=== PATIENT | female | born 1950 | race Caucasian/White ===

== ENCOUNTER 2017-10-10 17:38 | Inpatient (IN) | payer OTHER ==
[~2017-10-10] VITALS: Ht 154.9 cm; Wt 49.0 kg
[2017-10-10 19:41] LABS: CALCIUM 8.3 mg/dL (8.5-10.1); CARBON DIOXIDE 23.8 mmol/L (21-32); CHLORIDE SERUM 103 mmol/L (98-107); CREATININE SERUM 0.7 mg/dL (0.6-1.0); GFR1 > 60 mL/min; GLUCOSE SERUM 130 mg/dL (74-106); POTASSIUM SERUM 4.4 mmol/L (3.5-5.1); SODIUM SERUM 136 mmol/L (136-145)
[2017-10-10 19:43] LABS: ALKALINE PHOSPHATASE 185 U/L (46-116); ALT/SGPT 18 U/L (14-59); AST/SGOT 31 U/L (15-37); BILIRUBIN TOTAL 0.64 mg/dL (0.20-1.00); CHOLESTEROL 142 mg/dL (<200); TOTAL PROTEIN, SERUM 7.1 g/dL (6.4-8.2)
[2017-10-10 19:51] LABS: ALBUMIN 3.2 g/dL (3.4-5.0)
[2017-10-10 21:35] LABS: PLATELET COUNT 378 x10^3mcL (130-400)
[2017-10-10 21:49] LABS: MAGNESIUM 2.2 mg/dL (1.8-2.4); PHOSPHOROUS 3.6 mg/dL (2.5-4.9)
[2017-10-10 21:51] LABS: CHOLESTEROL/HDL RATIO 4.1
[2017-10-10 21:56] LABS: FREE T4 1.09 ng/dL (0.76-1.46); FREE THYROXINE INDEX 2.3 ug/dL (1.4-4.5); T4(THYROXINE) 6.6 ug/dL (4.7-13.3)
[2017-10-10 21:57] VITALS: BP 96/54
[2017-10-10 22:11] LABS: RED CELL DISTRIBUTION WIDTH 23.4 % (11.5-14.5)
[2017-10-10 22:38] LABS: T3 TOTAL 0.73 ng/mL
[2017-10-10 23:58] LABS: rbc morphology (normal/abnorm) ABNORMAL (NORMAL)
[2017-10-11] VITALS (8 sets, daily range): BP systolic 91–109; BP diastolic 45–55
[2017-10-11 00:04] LABS: BAND NEUTROPHIL 10 % (0-10); PLATELET MORPHOLOGY LARGE PLATELET SEEN; SEGMENTED NEUTROPHILS 70 % (37-75)
[2017-10-11 01:31] LABS: IRON 7 ug/dL (50-170); TOTAL IRON BINDING CAPACITY 222 ug/dL (250-450)
[2017-10-11 02:24] LABS: RED BLOOD CELLS 2.77 M/mm3 (4.10-5.10)
[2017-10-11 02:51] LABS: UA SPECIFIC GRAVITY 1.015 (1.005-1.035); microscopic required? YES; urine erythrocyte NEGATIVE (NEGATIVE)
[2017-10-11 03:04] LABS: AMPHETAMINE QUAL UR NONE DETECTED (NEG <=1000)
[2017-10-11 10:45] LABS: PLATELET COUNT 336 x10^3mcL (130-400)
[2017-10-11 11:01] LABS: CALCIUM 8.4 mg/dL (8.5-10.1); CARBON DIOXIDE 22.8 mmol/L (21-32); CHLORIDE SERUM 103 mmol/L (98-107); CREATININE SERUM 0.6 mg/dL (0.6-1.0); GFR1 > 60 mL/min; GLUCOSE SERUM 108 mg/dL (74-106); POTASSIUM SERUM 3.7 mmol/L (3.5-5.1); SODIUM SERUM 137 mmol/L (136-145)
[2017-10-11 11:04] LABS: BASOPHIL % 0 % (0-2); RED CELL DISTRIBUTION WIDTH 32.8 % (11.5-14.5)
[2017-10-11 11:07] LABS: ovalocyte/elliptocyte 1+; rbc morphology (normal/abnorm) ABNORMAL (NORMAL)
[2017-10-11 19:31] LABS: PLATELET COUNT 319 x10^3mcL (130-400)
[2017-10-11 19:53] LABS: BASOPHIL % 0 % (0-2); RED CELL DISTRIBUTION WIDTH 31.9 % (11.5-14.5)
[2017-10-11 20:02] LABS: rbc morphology (normal/abnorm) ABNORMAL (NORMAL)
[2017-10-11 20:03] LABS: tear drop cell (dacryocyte) 1+
[2017-10-12 05:18] VITALS: BP 93/50
[2017-10-12 07:31] LABS: PLATELET COUNT 303 x10^3mcL (130-400)
[2017-10-12 07:32] LABS: RED CELL DISTRIBUTION WIDTH 31.9 % (11.5-14.5)
[2017-10-12 07:33] LABS: CALCIUM 8.3 mg/dL (8.5-10.1); CARBON DIOXIDE 23.2 mmol/L (21-32); CHLORIDE SERUM 107 mmol/L (98-107); CREATININE SERUM 0.5 mg/dL (0.6-1.0); GFR1 > 60 mL/min; GLUCOSE SERUM 73 mg/dL (74-106); MAGNESIUM 2.1 mg/dL (1.8-2.4); POTASSIUM SERUM 3.3 mmol/L (3.5-5.1); SODIUM SERUM 141 mmol/L (136-145)
[2017-10-12 09:16] VITALS: BP 101/58
[2017-10-12 09:20] LABS: BAND NEUTROPHIL 0 % (0-10); BASOPHIL 0 % (0-2); MONOCYTE 5 % (0-7); SEGMENTED NEUTROPHILS 72 % (37-75)
[2017-10-12 09:23] LABS: rbc morphology (normal/abnorm) ABNORMAL (NORMAL)
[2017-10-12 09:24] LABS: target cell (codocyte) 1+; tear drop cell (dacryocyte) 1+
[2017-10-12 11:33] VITALS: BP 96/51
[2017-10-12 17:09] VITALS: BP 98/47
[2017-10-12 19:39] VITALS: BP 129/68
[2017-10-13 04:47] VITALS: BP 114/60
[2017-10-13 08:52] LABS: BASOPHIL % 0.1 % (0-2); PLATELET COUNT 267 x10^3mcL (130-400)
[2017-10-13 08:54] VITALS: BP 106/55
[2017-10-13 09:43] LABS: RED CELL DISTRIBUTION WIDTH 32.8 % (11.5-14.5)
[2017-10-13 09:46] LABS: rbc morphology (normal/abnorm) ABNORMAL (NORMAL); target cell (codocyte) 1+; tear drop cell (dacryocyte) 1+
[2017-10-13 09:55] LABS: CALCIUM 8.2 mg/dL (8.5-10.1); CARBON DIOXIDE 22.8 mmol/L (21-32); CHLORIDE SERUM 107 mmol/L (98-107); CREATININE SERUM 0.6 mg/dL (0.6-1.0); GFR1 > 60 mL/min; GLUCOSE SERUM 118 mg/dL (74-106); MAGNESIUM 2.1 mg/dL (1.8-2.4); PHOSPHOROUS 3.3 mg/dL (2.5-4.9); POTASSIUM SERUM 3.5 mmol/L (3.5-5.1); SODIUM SERUM 141 mmol/L (136-145)
[2017-10-13 13:40] VITALS: BP 109/56
[2017-10-13 17:28] VITALS: BP 105/58
[2017-10-13] MEDS ORDERED: LIPI10 PO (18:10)
[2017-10-13] MEDS ORDERED: TOPROL XL25 MG PO (18:13)
[2017-10-13] MEDS ORDERED: LEVAQUIN750 MG PO (18:25)
[2017-10-13] MEDS ORDERED: GOOD SENSE OMEP20 MG PO (18:46)
[2017-10-13 19:06] VITALS: BP 105/58
[2017-10-13 19:51] VITALS: Ht 154.9 cm; Wt 49.0 kg
[2017-10-13 20:20] VITALS: BP 110/60
== END 2017-10-13 21:21 | disposition home or self-care (01) | DRG 377 ==
LOC: ED 17:38 → DU 20:25
PROVIDERS: Emergency Medicine; Family Medicine; Internal Medicine Gastroenterology
PROC: 30233N1 Transfusion of Nonautologous Red Blood Cells into Peripheral Vein, Percutaneous Approach (ICD-10-PCS; 2017-10-11)
PROC: 0DB68ZX Excision of Stomach, Via Natural or Artificial Opening Endoscopic, Diagnostic (ICD-10-PCS; principal; 2017-10-12 09:30)
PROC: 0W3P8ZZ Control Bleeding in Gastrointestinal Tract, Via Natural or Artificial Opening Endoscopic (ICD-10-PCS; 2017-10-12 09:30)
DX: K92.2 Gastrointestinal hemorrhage, unspecified (principal); N17.0 Acute kidney failure with tubular necrosis; I50.43 Acute on chronic combined systolic (congestive) and diastolic (congestive) heart failure; N39.0 Urinary tract infection, site not specified; D61.818 Other pancytopenia; E87.1 Hypo-osmolality and hyponatremia; I42.9 Cardiomyopathy, unspecified; I25.10 Atherosclerotic heart disease of native coronary artery without angina pectoris; M81.0 Age-related osteoporosis without current pathological fracture; E11.9 Type 2 diabetes mellitus without complications; D50.9 Iron deficiency anemia, unspecified; R74.0 Nonspecific elevation of levels of transaminase and lactic acid dehydrogenase [LDH]; E83.51 Hypocalcemia; I11.0 Hypertensive heart disease with heart failure; Z90.49 Acquired absence of other specified parts of digestive tract
CPT/HCPCS: 43235; 82962; 83880; 84439; 97110-GP; G0480; J0696; J1200; J1610; J2250; J2310; J2916; J3010; J3490; J7030; J7050; P9016; Q0163

== ENCOUNTER 2017-11-04 14:13 | Emergency (ER) | payer OTHER ==
[~2017-11-04] VITALS: Ht 147.3 cm; Wt 48.1 kg
[~2017-11-04 14:13] MED LIST: GOOD SENSE OMEP20 MG PO; LEVAQUIN750 MG PO; LIPI10 PO; TOPROL XL25 MG PO
[2017-11-04 14:18] VITALS: Ht 147.3 cm; Wt 48.1 kg
[2017-11-04 16:40] LABS: BASOPHIL % 0.1 % (0-2); PLATELET COUNT 295 x10^3mcL (130-400)
[2017-11-04 16:51] LABS: CALCIUM 8.7 mg/dL (8.5-10.1); CARBON DIOXIDE 26.1 mmol/L (21-32); CHLORIDE SERUM 102 mmol/L (98-107); CREATININE SERUM 0.8 mg/dL (0.6-1.0); GFR1 > 60 mL/min; GLUCOSE SERUM 121 mg/dL (74-106); POTASSIUM SERUM 3.8 mmol/L (3.5-5.1); SODIUM SERUM 137 mmol/L (136-145)
[2017-11-04 16:56] LABS: ALKALINE PHOSPHATASE 542 U/L (46-116); ALT/SGPT 35 U/L (14-59); AST/SGOT 30 U/L (15-37); BILIRUBIN TOTAL 0.6 mg/dL (0.20-1.00); TOTAL PROTEIN, SERUM 7.9 g/dL (6.4-8.2)
[2017-11-04 17:12] LABS: rbc morphology (normal/abnorm) ABNORMAL (NORMAL)
[2017-11-04 19:09] VITALS: BP 122/76
== END 2017-11-04 19:09 | disposition home or self-care (01) ==
LOC: ED 14:13
DX: I20.9 Angina pectoris, unspecified (principal); E11.9 Type 2 diabetes mellitus without complications; I25.2 Old myocardial infarction; Z86.79 Personal history of other diseases of the circulatory system
CPT/HCPCS: 36415; 83880; Q0092

== ENCOUNTER 2018-01-31 16:00 | Inpatient (IN) | payer OTHER ==
[~2018-01-31] VITALS: Ht 142.2 cm; Wt 48.1 kg
[~2018-01-31 16:00] MED LIST changes: +LAC PO; +MAC100 PO
[2018-01-31 17:33] LABS: BASOPHIL % 0.1 % (0-2); PLATELET COUNT 297 x10^3mcL (130-400)
[2018-01-31 17:35] LABS: RED CELL DISTRIBUTION WIDTH 19.8 % (11.5-14.5)
[2018-01-31 17:37] LABS: CALCIUM 8.2 mg/dL (8.5-10.1); CARBON DIOXIDE 27.5 mmol/L (21-32); CHLORIDE SERUM 103 mmol/L (98-107); CREATININE SERUM 0.6 mg/dL (0.6-1.0); GFR1 > 60 mL/min; GLUCOSE SERUM 155 mg/dL (74-106); POTASSIUM SERUM 4.2 mmol/L (3.5-5.1); SODIUM SERUM 139 mmol/L (136-145)
[2018-01-31 17:41] LABS: ALKALINE PHOSPHATASE 677 U/L (46-116); ALT/SGPT 48 U/L (14-59); AST/SGOT 108 U/L (15-37); BILIRUBIN TOTAL 0.8 mg/dL (0.20-1.00); LIPASE 154 IU/L (73-393); TOTAL PROTEIN, SERUM 7.7 g/dL (6.4-8.2)
[2018-01-31 17:44] LABS: ALBUMIN 3.2 g/dL (3.4-5.0)
[2018-01-31 20:31] VITALS: BP 138/65
[2018-01-31 20:44] LABS: microscopic required? YES; urine erythrocyte 2+ (NEGATIVE)
[2018-01-31 20:50] LABS: CHOLESTEROL/HDL RATIO 4.5; MAGNESIUM 1.9 mg/dL (1.8-2.4); PHOSPHOROUS 3.8 mg/dL (2.5-4.9)
[2018-01-31 20:52] LABS: AMPHETAMINE QUAL UR NONE DETECTED (See below)
[2018-01-31 20:56] LABS: T3 TOTAL 0.98 ng/mL
[2018-01-31 21:21] LABS: FREE T4 0.97 ng/dL (0.76-1.46); FREE THYROXINE INDEX 1.9 ug/dL (1.4-4.5)
[2018-01-31] MEDS ORDERED: TOPROL XL25 MG PO (23:37)
[2018-02-01] VITALS (10 sets, daily range): BP systolic 96–111; BP diastolic 43–72
[2018-02-01 03:14] LABS: IRON 19 ug/dL (50-170); TOTAL IRON BINDING CAPACITY 183 ug/dL (250-450)
[2018-02-01 03:40] LABS: RED BLOOD CELLS 3.9 M/mm3 (4.10-5.10)
[2018-02-01 06:26] LABS: BASOPHIL % 0.3 % (0-2); PLATELET COUNT 241 x10^3mcL (130-400)
[2018-02-01 06:30] LABS: CALCIUM 8.3 mg/dL (8.5-10.1); CARBON DIOXIDE 22.7 mmol/L (21-32); CHLORIDE SERUM 106 mmol/L (98-107); CREATININE SERUM 0.5 mg/dL (0.6-1.0); GFR1 > 60 mL/min; GLUCOSE SERUM 80 mg/dL (74-106); POTASSIUM SERUM 3.7 mmol/L (3.5-5.1); SODIUM SERUM 136 mmol/L (136-145)
[2018-02-01 06:33] LABS: RED CELL DISTRIBUTION WIDTH 19.9 % (11.5-14.5)
[2018-02-01 06:34] LABS: rbc morphology (normal/abnorm) ABNORMAL (NORMAL)
[2018-02-02 04:30] VITALS: BP 117/54
[2018-02-02 05:51] LABS: BASOPHIL % 0.3 % (0-2); PLATELET COUNT 217 x10^3mcL (130-400)
[2018-02-02 05:55] LABS: RED CELL DISTRIBUTION WIDTH 20.4 % (11.5-14.5)
[2018-02-02 06:11] LABS: rbc morphology (normal/abnorm) ABNORMAL (NORMAL)
[2018-02-02 06:17] LABS: CALCIUM 7.7 mg/dL (8.5-10.1); CHLORIDE SERUM 108 mmol/L (98-107); CREATININE SERUM 0.5 mg/dL (0.6-1.0); GFR1 > 60 mL/min; GLUCOSE SERUM 100 mg/dL (74-106); MAGNESIUM 1.8 mg/dL (1.8-2.4); PHOSPHOROUS 3.8 mg/dL (2.5-4.9); POTASSIUM SERUM 3.8 mmol/L (3.5-5.1); SODIUM SERUM 141 mmol/L (136-145)
[2018-02-02 08:59] VITALS: BP 102/50
[2018-02-02 12:31] VITALS: BP 114/69
[2018-02-02 17:56] VITALS: BP 98/57
[2018-02-02 20:29] VITALS: BP 112/61
[2018-02-03 05:37] VITALS: BP 106/55
[2018-02-03 08:16] LABS: BASOPHIL % 0.8 % (0-2); PLATELET COUNT 232 x10^3mcL (130-400)
[2018-02-03 08:20] LABS: RED CELL DISTRIBUTION WIDTH 20.8 % (11.5-14.5)
[2018-02-03 08:21] LABS: rbc morphology (normal/abnorm) ABNORMAL (NORMAL)
[2018-02-03 08:42] LABS: CALCIUM 8.8 mg/dL (8.5-10.1); CARBON DIOXIDE 24.2 mmol/L (21-32); CHLORIDE SERUM 105 mmol/L (98-107); CREATININE SERUM 0.5 mg/dL (0.6-1.0); GFR1 > 60 mL/min; GLUCOSE SERUM 88 mg/dL (74-106); POTASSIUM SERUM 3.6 mmol/L (3.5-5.1); SODIUM SERUM 136 mmol/L (136-145)
[2018-02-03 08:45] LABS: MAGNESIUM 1.6 mg/dL (1.8-2.4); PHOSPHOROUS 3.6 mg/dL (2.5-4.9)
[2018-02-03 08:57] VITALS: BP 162/82; BP 94/49
[2018-02-03 10:45] VITALS: BP 103/53
[2018-02-03 13:05] VITALS: BP 107/60
[2018-02-03 17:35] VITALS: BP 106/67
[2018-02-03 21:51] VITALS: BP 101/57
[2018-02-04] VITALS (16 sets, daily range): BP systolic 100–131; BP diastolic 52–75; Ht 142.2 cm; Wt 48.1 kg
[2018-02-05] VITALS: BP 119/61
[2018-02-05 05:13] VITALS: BP 123/62
[2018-02-05 07:38] LABS: CALCIUM 7.5 mg/dL (8.5-10.1); CARBON DIOXIDE 24.5 mmol/L (21-32); CHLORIDE SERUM 107 mmol/L (98-107); CREATININE SERUM 0.5 mg/dL (0.6-1.0); GFR1 > 60 mL/min; GLUCOSE SERUM 83 mg/dL (74-106); MAGNESIUM 1.9 mg/dL (1.8-2.4); PHOSPHOROUS 3.3 mg/dL (2.5-4.9); POTASSIUM SERUM 3.6 mmol/L (3.5-5.1); SODIUM SERUM 140 mmol/L (136-145)
[2018-02-05 07:52] LABS: PLATELET COUNT 261 x10^3mcL (130-400); RED CELL DISTRIBUTION WIDTH 22.1 % (11.5-14.5)
[2018-02-05 08:04] VITALS: BP 18126/6
[2018-02-05] MEDS ORDERED: FER300 PO (09:06)
[2018-02-05] MEDS ORDERED: ISOSORBIDE MONO30 MG PO (09:08)
[2018-02-05] MEDS ORDERED: METOPROLOL TART25 M1 PO (09:08)
[2018-02-05] MEDS ORDERED: ZES5 PO (09:10)
[2018-02-05] MEDS ORDERED: ECO81 PO (09:11)
[2018-02-05 09:33] LABS: ATYPICAL LYMPH 0 %; BAND NEUTROPHIL 0 % (0-10); BASOPHIL 0 % (0-2); MONOCYTE 14 % (0-7); SEGMENTED NEUTROPHILS 72 % (37-75); rbc morphology (normal/abnorm) ABNORMAL (NORMAL)
[2018-02-05 09:34] LABS: PLATELET MORPHOLOGY N
[2018-02-05 11:39] VITALS: BP 126/68
[2018-02-05 12:09] VITALS: BP 114/60
[2018-02-05 16:22] VITALS: BP 106/59
== END 2018-02-05 18:53 | disposition home or self-care (01) | DRG 205 ==
LOC: ED 16:00 → DU 19:33
PROVIDERS: Emergency Medicine; Family Medicine; Internal Medicine
PROC: B2151ZZ Fluoroscopy of Left Heart using Low Osmolar Contrast (ICD-10-PCS; 2018-02-04)
PROC: B2111ZZ Fluoroscopy of Multiple Coronary Arteries using Low Osmolar Contrast (ICD-10-PCS; 2018-02-04)
PROC: 4A023N7 Measurement of Cardiac Sampling and Pressure, Left Heart, Percutaneous Approach (ICD-10-PCS; principal; 2018-02-04 10:00)
DX: M94.0 Chondrocostal junction syndrome [Tietze] (principal); I50.43 Acute on chronic combined systolic (congestive) and diastolic (congestive) heart failure; I42.0 Dilated cardiomyopathy; E44.1 Mild protein-calorie malnutrition; E11.9 Type 2 diabetes mellitus without complications; I11.0 Hypertensive heart disease with heart failure; K76.0 Fatty (change of) liver, not elsewhere classified; R31.9 Hematuria, unspecified; K57.30 Diverticulosis of large intestine without perforation or abscess without bleeding; E83.51 Hypocalcemia; I10 Essential (primary) hypertension; E78.5 Hyperlipidemia, unspecified; D64.9 Anemia, unspecified; I25.2 Old myocardial infarction; Z68.23 Body mass index [BMI] 23.0-23.9, adult
CPT/HCPCS: CLHCL; 82962; 83516; 83880; 84439; C1760; C1769; C1887; C1894; J1644; J1815; J2001; J2250; J2270; J2405; J3010; J3475; J3490; J7030; Q0092; Q9967

== ENCOUNTER 2018-05-30 12:16 | Inpatient (IN) | payer OTHER ==
[~2018-05-30] VITALS: Ht 149.9 cm; Wt 48.7 kg
[~2018-05-30 12:16] MED LIST changes: +ECO81 PO; +FER300 PO; +ISOSORBIDE MONO30 MG PO; +METOPROLOL TART25 M1 PO; +ZES5 PO
[2018-05-30 13:07] LABS: CALCIUM 8.7 mg/dL (8.5-10.1); CARBON DIOXIDE 23.4 mmol/L (21-32); CHLORIDE SERUM 105 mmol/L (98-107); CREATININE SERUM 0.8 mg/dL (0.6-1.0); GFR1 > 60 mL/min; GLUCOSE SERUM 238 mg/dL (74-106); POTASSIUM SERUM 4.8 mmol/L (3.5-5.1); SODIUM SERUM 136 mmol/L (136-145)
[2018-05-30 13:19] LABS: PLATELET COUNT 319 x10^3mcL (130-400)
[2018-05-30 13:28] LABS: BASOPHIL % 2.2 % (0-2); RED CELL DISTRIBUTION WIDTH 19.2 % (11.5-14.5)
[2018-05-30 14:50] LABS: T3 TOTAL 1.19 ng/mL
[2018-05-30 14:53] LABS: CHOLESTEROL/HDL RATIO 3.5; MAGNESIUM 2.5 mg/dL (1.8-2.4); PHOSPHOROUS 4.5 mg/dL (2.5-4.9)
[2018-05-30 15:01] LABS: FREE T4 1.05 ng/dL (0.76-1.46); FREE THYROXINE INDEX 2.5 ug/dL (1.4-4.5); T4(THYROXINE) 7.2 ug/dL (4.7-13.3)
[2018-05-30 15:06] VITALS: BP 83/48
[2018-05-30 16:11] VITALS: BP 113/48
[2018-05-30 17:01] LABS: IRON 128 ug/dL (50-170); TOTAL IRON BINDING CAPACITY 224 ug/dL (250-450)
[2018-05-30 20:38] LABS: RED BLOOD CELLS 4.35 M/mm3 (4.10-5.10)
[2018-05-30 20:57] VITALS: BP 87/49
[2018-05-30 21:15] VITALS: BP 91/50
[2018-05-30 21:36] LABS: microscopic required? YES; urine erythrocyte NEGATIVE (NEGATIVE)
[2018-05-30 21:41] LABS: AMPHETAMINE QUAL UR NONE DETECTED (See below)
[2018-05-31 02:33] VITALS: BP 102/52
[2018-05-31 06:03] VITALS: BP 95/48
[2018-05-31 06:45] LABS: CALCIUM 7.8 mg/dL (8.5-10.1); CARBON DIOXIDE 22.8 mmol/L (21-32); CHLORIDE SERUM 115 mmol/L (98-107); CREATININE SERUM 0.8 mg/dL (0.6-1.0); GFR1 > 60 mL/min; GLUCOSE SERUM 101 mg/dL (74-106); MAGNESIUM 2.1 mg/dL (1.8-2.4); PHOSPHOROUS 4.1 mg/dL (2.5-4.9); POTASSIUM SERUM 4.3 mmol/L (3.5-5.1); SODIUM SERUM 146 mmol/L (136-145)
[2018-05-31 09:00] VITALS: BP 93/45
[2018-05-31 09:09] LABS: BASOPHIL % 0.5 % (0-2); PLATELET COUNT 255 x10^3mcL (130-400)
[2018-05-31 17:33] VITALS: BP 92/50
[2018-05-31 17:57] VITALS: BP 128/61
[2018-05-31 20:11] VITALS: BP 106/51
[2018-06-01 04:42] VITALS: BP 96/52
[2018-06-01 06:16] LABS: CALCIUM 8.4 mg/dL (8.5-10.1); CHLORIDE SERUM 107 mmol/L (98-107); CREATININE SERUM 0.7 mg/dL (0.6-1.0); GFR1 > 60 mL/min; GLUCOSE SERUM 97 mg/dL (74-106); MAGNESIUM 1.8 mg/dL (1.8-2.4); PHOSPHOROUS 4.1 mg/dL (2.5-4.9); POTASSIUM SERUM 4.3 mmol/L (3.5-5.1); SODIUM SERUM 138 mmol/L (136-145)
[2018-06-01 07:54] LABS: BASOPHIL % 0.5 % (0-2); PLATELET COUNT 244 x10^3mcL (130-400)
[2018-06-01 08:00] LABS: RED CELL DISTRIBUTION WIDTH 19.8 % (11.5-14.5)
[2018-06-01 08:30] VITALS: BP 105/54
[2018-06-01 12:48] VITALS: BP 95/50
[2018-06-01 16:20] VITALS: BP 83/43
[2018-06-01 20:55] VITALS: BP 91/51
[2018-06-02] VITALS (7 sets, daily range): BP systolic 85–104; BP diastolic 43–56
[2018-06-02 07:32] LABS: BASOPHIL % 0.5 % (0-2); PLATELET COUNT 250 x10^3mcL (130-400); RED CELL DISTRIBUTION WIDTH 19.5 % (11.5-14.5)
[2018-06-02 07:33] LABS: CALCIUM 8.4 mg/dL (8.5-10.1); CARBON DIOXIDE 25.6 mmol/L (21-32); CHLORIDE SERUM 105 mmol/L (98-107); CREATININE SERUM 0.8 mg/dL (0.6-1.0); GFR1 > 60 mL/min; GLUCOSE SERUM 87 mg/dL (74-106); POTASSIUM SERUM 4.1 mmol/L (3.5-5.1); SODIUM SERUM 138 mmol/L (136-145)
[2018-06-03 05:04] VITALS: BP 96/55
[2018-06-03 07:09] LABS: BASOPHIL % 0.4 % (0-2); PLATELET COUNT 269 x10^3mcL (130-400)
[2018-06-03 07:15] LABS: RED CELL DISTRIBUTION WIDTH 18.5 % (11.5-14.5)
[2018-06-03 07:16] LABS: rbc morphology (normal/abnorm) ABNORMAL (NORMAL)
[2018-06-03 07:22] LABS: CALCIUM 8.3 mg/dL (8.5-10.1); CARBON DIOXIDE 25.6 mmol/L (21-32); CHLORIDE SERUM 104 mmol/L (98-107); CREATININE SERUM 0.7 mg/dL (0.6-1.0); GFR1 > 60 mL/min; GLUCOSE SERUM 85 mg/dL (74-106); MAGNESIUM 1.6 mg/dL (1.8-2.4); PHOSPHOROUS 4.1 mg/dL (2.5-4.9); POTASSIUM SERUM 4.7 mmol/L (3.5-5.1); SODIUM SERUM 136 mmol/L (136-145)
[2018-06-03 08:54] VITALS: BP 100/42
[2018-06-03 13:40] VITALS: BP 112/57
[2018-06-03 17:34] VITALS: BP 93/68
[2018-06-03 20:41] VITALS: BP 105/59
[2018-06-04 05:28] VITALS: BP 96/60
[2018-06-04 09:51] VITALS: BP 83/53
[2018-06-04 10:50] VITALS: BP 111/66
[2018-06-04 13:47] VITALS: BP 97/58
[2018-06-04 17:13] VITALS: BP 116/62
[2018-06-04 20:35] VITALS: BP 122/53
[2018-06-05 05:25] VITALS: BP 95/53
[2018-06-05 06:31] LABS: CALCIUM 8.9 mg/dL (8.5-10.1); CHLORIDE SERUM 101 mmol/L (98-107); CREATININE SERUM 0.8 mg/dL (0.6-1.0); GFR1 > 60 mL/min; GLUCOSE SERUM 99 mg/dL (74-106); MAGNESIUM 2.1 mg/dL (1.8-2.4); PHOSPHOROUS 4.5 mg/dL (2.5-4.9); POTASSIUM SERUM 4.2 mmol/L (3.5-5.1); SODIUM SERUM 134 mmol/L (136-145)
[2018-06-05 06:57] LABS: BASOPHIL % 0.3 % (0-2); PLATELET COUNT 315 x10^3mcL (130-400)
[2018-06-05 07:01] LABS: RED CELL DISTRIBUTION WIDTH 21.3 % (11.5-14.5)
[2018-06-05 07:04] LABS: rbc morphology (normal/abnorm) ABNORMAL (NORMAL)
[2018-06-05 10:15] VITALS: BP 104/60
[2018-06-05 14:39] VITALS: BP 101/59
[2018-06-05 18:21] VITALS: BP 97/56
[2018-06-05 21:15] VITALS: BP 121/63
[2018-06-06 05:38] VITALS: BP 108/59
[2018-06-06 09:41] VITALS: BP 102/59
[2018-06-06 12:08] VITALS: BP 110/63
[2018-06-06 17:19] VITALS: BP 98/54
[2018-06-06 19:20] VITALS: BP 151/61
[2018-06-06 20:31] VITALS: BP 116/72
[2018-06-07 05:47] VITALS: BP 107/62
[2018-06-07 06:50] LABS: CARBON DIOXIDE 26.4 mmol/L (21-32); CHLORIDE SERUM 102 mmol/L (98-107); CREATININE SERUM 0.8 mg/dL (0.6-1.0); GFR1 > 60 mL/min; GLUCOSE SERUM 128 mg/dL (74-106); POTASSIUM SERUM 4.5 mmol/L (3.5-5.1); SODIUM SERUM 136 mmol/L (136-145)
[2018-06-07 08:02] VITALS: BP 102/69
[2018-06-07 11:51] VITALS: BP 119/71
[2018-06-07 17:02] VITALS: BP 88/54
[2018-06-07 19:15] VITALS: BP 117/59
[2018-06-08 06:06] VITALS: BP 98/56
[2018-06-08 07:38] LABS: CALCIUM 8.2 mg/dL (8.5-10.1); CARBON DIOXIDE 24.6 mmol/L (21-32); CHLORIDE SERUM 103 mmol/L (98-107); CREATININE SERUM 0.8 mg/dL (0.6-1.0); GFR1 > 60 mL/min; GLUCOSE SERUM 88 mg/dL (74-106); PHOSPHOROUS 3.6 mg/dL (2.5-4.9); POTASSIUM SERUM 4.1 mmol/L (3.5-5.1); SODIUM SERUM 136 mmol/L (136-145)
[2018-06-08 09:40] VITALS: BP 104/80
[2018-06-08 13:50] VITALS: BP 93/54
[2018-06-08 16:47] VITALS: BP 93/54
[2018-06-08 17:23] VITALS: BP 109/69
== END 2018-06-08 17:30 | disposition short-term general hospital (02) | DRG 291 ==
LOC: ED 12:16 → DU 13:48
PROVIDERS: Emergency Medicine; Family Medicine; Internal Medicine
DX: I11.0 Hypertensive heart disease with heart failure (principal); N17.0 Acute kidney failure with tubular necrosis; E87.1 Hypo-osmolality and hyponatremia; I50.43 Acute on chronic combined systolic (congestive) and diastolic (congestive) heart failure; I25.110 Atherosclerotic heart disease of native coronary artery with unstable angina pectoris; I25.5 Ischemic cardiomyopathy; E11.9 Type 2 diabetes mellitus without complications; D50.9 Iron deficiency anemia, unspecified; E83.41 Hypermagnesemia; I95.9 Hypotension, unspecified; I25.2 Old myocardial infarction; Z79.82 Long term (current) use of aspirin; Z91.14 Patient's other noncompliance with medication regimen
CPT/HCPCS: 83880; 84439; 85378; 94150; A9540; J1650; J7030; J7120; J7620; Q0092; Q0163; Q9967

== ENCOUNTER 2018-08-13 20:05 | Emergency (ER) | payer OTHER, MEDICAID ==
[~2018-08-13] VITALS: Ht 134.6 cm; Wt 40.8 kg
[2018-08-13 20:21] VITALS: Ht 134.6 cm; Wt 40.8 kg
[2018-08-13 22:06] VITALS: BP 144/98
== END 2018-08-13 22:06 | disposition home or self-care (01) ==
LOC: ED 20:05
DX: R04.0 Epistaxis (principal); I50.9 Heart failure, unspecified; E11.9 Type 2 diabetes mellitus without complications; Z86.2 Personal history of diseases of the blood and blood-forming organs and certain disorders involving the immune mechanism; Z90.49 Acquired absence of other specified parts of digestive tract; Z98.890 Other specified postprocedural states

== ENCOUNTER 2018-11-01 10:41 | Inpatient (IN) | payer OTHER, MEDICAID ==
[~2018-11-01] VITALS: Ht 149.9 cm; Wt 48.6 kg
[2018-11-01 10:42] VITALS: Ht 149.9 cm; Wt 48.6 kg
[2018-11-01 11:42] LABS: PLATELET COUNT 413 x10^3mcL (130-400); RED CELL DISTRIBUTION WIDTH 21.5 % (11.5-14.5)
[2018-11-01 11:44] LABS: CALCIUM 8.6 mg/dL (8.5-10.1); CARBON DIOXIDE 24.4 mmol/L (21-32); CHLORIDE SERUM 104 mmol/L (98-107); CREATININE SERUM 0.6 mg/dL (0.6-1.0); GFR1 > 60 mL/min; GLUCOSE SERUM 144 mg/dL (74-106); SODIUM SERUM 139 mmol/L (136-145)
[2018-11-01 11:53] LABS: FREE T4 0.99 ng/dL (0.76-1.46)
[2018-11-01 11:54] LABS: CK-MB < 0.5 ng/mL (0-3.6); CREATINE KINASE 14 U/L (26-192)
[2018-11-01 11:57] LABS: FREE THYROXINE INDEX 1.7 ug/dL (1.4-4.5); T3 TOTAL 0.83 ng/mL; T4(THYROXINE) 4.6 ug/dL (4.7-13.3)
[2018-11-01 11:58] LABS: ALKALINE PHOSPHATASE 496 U/L (46-116); ALT/SGPT 36 U/L (14-59); AST/SGOT 35 U/L (15-37); BILIRUBIN TOTAL 0.6 mg/dL (0.20-1.00); C REACTIVE PROTEIN 0.8 mg/dL (<=0.9); TOTAL PROTEIN, SERUM 7.9 g/dL (6.4-8.2)
[2018-11-01 12:01] LABS: ALBUMIN 3.3 g/dL (3.4-5.0)
[2018-11-01 12:03] LABS: microscopic required? YES; urine erythrocyte NEGATIVE (NEGATIVE)
[2018-11-01] MEDS ORDERED: CLOPIDOGREL75 M1 (12:08)
[2018-11-01] MEDS ORDERED: PANTOPRAZOLE SO40 M1 PO (12:08)
[2018-11-01 12:14] LABS: ERYTHROCYTE SED RATE 45 mm/hr (0-30)
[2018-11-01 12:29] LABS: ATYPICAL LYMPH 0 %; MONOCYTE 10 % (0-7); SEGMENTED NEUTROPHILS 74 % (37-75)
[2018-11-01 12:30] LABS: BAND NEUTROPHIL 2 % (0-10); BASOPHIL 0 % (0-2); PLATELET MORPHOLOGY N; rbc morphology (normal/abnorm) ABNORMAL (NORMAL)
[2018-11-01 14:16] VITALS: BP 124/66
[2018-11-01 14:26] LABS: AMPHETAMINE QUAL UR NONE DETECTED (See below)
[2018-11-01 15:06] LABS: CHOLESTEROL/HDL RATIO 3.3; PHOSPHOROUS 3.4 mg/dL (2.5-4.9)
[2018-11-01 16:34] VITALS: BP 111/47
[2018-11-02 04:26] LABS: PLATELET COUNT 325 x10^3mcL (130-400)
[2018-11-02 05:08] LABS: RED CELL DISTRIBUTION WIDTH 21.5 % (11.5-14.5)
[2018-11-02 05:24] LABS: BAND NEUTROPHIL 2 % (0-10); MONOCYTE 10 % (0-7); SEGMENTED NEUTROPHILS 74 % (37-75); rbc morphology (normal/abnorm) ABNORMAL (NORMAL)
[2018-11-02 05:25] LABS: PLATELET MORPHOLOGY PLATELETS NORMAL
[2018-11-02 05:42] LABS: CHLORIDE SERUM 107 mmol/L (98-107); POTASSIUM SERUM 3.8 mmol/L (3.5-5.1); SODIUM SERUM 139 mmol/L (136-145)
[2018-11-02 05:43] LABS: CALCIUM 8.4 mg/dL (8.5-10.1); CARBON DIOXIDE 25.4 mmol/L (21-32); CREATININE SERUM 0.7 mg/dL (0.6-1.0); GFR1 > 60 mL/min; GLUCOSE SERUM 112 mg/dL (74-106)
[2018-11-02 06:54] VITALS: BP 113/56
[2018-11-02 09:01] VITALS: BP 102/54
[2018-11-02 11:24] LABS: IRON 123 ug/dL (50-170)
[2018-11-02 11:25] LABS: TOTAL IRON BINDING CAPACITY 240 ug/dL (250-450)
[2018-11-02 12:02] VITALS: BP 115/58
[2018-11-02 18:07] VITALS: BP 87/46
[2018-11-02 18:52] VITALS: BP 119/47
[2018-11-03 05:30] VITALS: BP 116/56
[2018-11-03 06:30] LABS: PLATELET COUNT 324 x10^3mcL (130-400)
[2018-11-03 06:43] LABS: CALCIUM 8.1 mg/dL (8.5-10.1); CARBON DIOXIDE 23.1 mmol/L (21-32); CHLORIDE SERUM 107 mmol/L (98-107); CREATININE SERUM 0.6 mg/dL (0.6-1.0); GFR1 > 60 mL/min; GLUCOSE SERUM 87 mg/dL (74-106); PHOSPHOROUS 3.5 mg/dL (2.5-4.9); POTASSIUM SERUM 4.1 mmol/L (3.5-5.1); SODIUM SERUM 140 mmol/L (136-145)
[2018-11-03 07:20] LABS: RED CELL DISTRIBUTION WIDTH 21.7 % (11.5-14.5)
[2018-11-03 09:00] VITALS: BP 98/54
[2018-11-03 12:21] VITALS: BP 105/56
[2018-11-03 12:24] LABS: BAND NEUTROPHIL 3 % (0-10); MONOCYTE 8 % (0-7); SEGMENTED NEUTROPHILS 77 % (37-75); rbc morphology (normal/abnorm) ABNORMAL (NORMAL)
[2018-11-03 12:25] LABS: PLATELET MORPHOLOGY PLATELETS NORMAL
[2018-11-03 17:02] VITALS: BP 111/56
[2018-11-03 19:58] VITALS: BP 125/78
[2018-11-04 05:33] VITALS: BP 127/57
[2018-11-04 06:13] LABS: PLATELET COUNT 311 x10^3mcL (130-400)
[2018-11-04 06:32] LABS: CALCIUM 8.3 mg/dL (8.5-10.1); CARBON DIOXIDE 24.9 mmol/L (21-32); CHLORIDE SERUM 106 mmol/L (98-107); CREATININE SERUM 0.6 mg/dL (0.6-1.0); GFR1 > 60 mL/min; GLUCOSE SERUM 93 mg/dL (74-106); SODIUM SERUM 140 mmol/L (136-145)
[2018-11-04 07:32] LABS: RED CELL DISTRIBUTION WIDTH 21.7 % (11.5-14.5)
[2018-11-04 09:59] VITALS: BP 111/50
[2018-11-04 10:13] LABS: BAND NEUTROPHIL 2 % (0-10); BASOPHIL 0 % (0-2); MONOCYTE 14 % (0-7); SEGMENTED NEUTROPHILS 59 % (37-75)
[2018-11-04 10:16] LABS: PLATELET MORPHOLOGY GIANT PLATELET SEEN; ovalocyte/elliptocyte 1+; rbc morphology (normal/abnorm) ABNORMAL (NORMAL); target cell (codocyte) 1+
[2018-11-04] MEDS ORDERED: TAM75 PO (12:13)
[2018-11-04 12:20] VITALS: BP 89/42
[2018-11-04 17:00] VITALS: BP 97/56
[2018-11-04 20:20] VITALS: BP 106/56
[2018-11-05 04:38] VITALS: BP 100/56
[2018-11-05 09:34] VITALS: BP 120/63
[2018-11-05 12:45] VITALS: BP 120/63
[2018-11-05 14:45] VITALS: BP 108/58
== END 2018-11-05 16:26 | disposition home or self-care (01) | DRG 152 ==
LOC: ED 10:41 → DU 12:32
PROVIDERS: Specialist; ADMIT Family Medicine
DX: J11.1 Influenza due to unidentified influenza virus with other respiratory manifestations (principal); I50.43 Acute on chronic combined systolic (congestive) and diastolic (congestive) heart failure; E44.1 Mild protein-calorie malnutrition; I11.0 Hypertensive heart disease with heart failure; R07.89 Other chest pain; I25.5 Ischemic cardiomyopathy; I25.10 Atherosclerotic heart disease of native coronary artery without angina pectoris; R73.03 Prediabetes; D63.8 Anemia in other chronic diseases classified elsewhere; I25.2 Old myocardial infarction; E78.5 Hyperlipidemia, unspecified; Z68.30 Body mass index [BMI] 30.0-30.9, adult; Z87.442 Personal history of urinary calculi; Z95.5 Presence of coronary angioplasty implant and graft
CPT/HCPCS: 36600; 82962; 83880; 84439; 87804; 97116-GP; 97530-GP; J0696; J2405; J2550; J7030; J7040; J8597

== ENCOUNTER 2019-01-22 11:56 | Emergency (ER) | payer OTHER, MEDICAID ==
[~2019-01-22] VITALS: Ht 134.6 cm; Wt 48.1 kg
[~2019-01-22 11:56] MED LIST changes: +CLOPIDOGREL75 M1; +PANTOPRAZOLE SO40 M1 PO; +TAM75 PO
[2019-01-22 12:32] VITALS: Ht 134.6 cm; Wt 48.1 kg
[2019-01-22 14:46] LABS: PLATELET COUNT 327 x10^3mcL (130-400)
[2019-01-22 14:57] LABS: CALCIUM 9.1 mg/dL (8.5-10.1); CARBON DIOXIDE 23.6 mmol/L (21-32); CHLORIDE SERUM 107 mmol/L (98-107); CREATININE SERUM 0.6 mg/dL (0.6-1.0); GFR1 > 60 mL/min; GLUCOSE SERUM 118 mg/dL (74-106); POTASSIUM SERUM 4.6 mmol/L (3.5-5.1); SODIUM SERUM 142 mmol/L (136-145)
[2019-01-22 14:58] LABS: RED CELL DISTRIBUTION WIDTH 21.9 % (11.5-14.5)
[2019-01-22 15:01] LABS: ALBUMIN 3.7 g/dL (3.4-5.0); ALKALINE PHOSPHATASE 756 U/L (46-116); ALT/SGPT 55 U/L (14-59); AST/SGOT 39 U/L (15-37); BILIRUBIN TOTAL 0.5 mg/dL (0.20-1.00); LIPASE 253 IU/L (73-393)
[2019-01-22 15:02] LABS: TOTAL PROTEIN, SERUM 8.6 g/dL (6.4-8.2)
[2019-01-22 15:22] LABS: BAND NEUTROPHIL 0 % (0-10); BASOPHIL 0 % (0-2); MONOCYTE 4 % (0-7); SEGMENTED NEUTROPHILS 65 % (37-75)
[2019-01-22 15:24] LABS: rbc morphology (normal/abnorm) ABNORMAL (NORMAL)
[2019-01-22 16:47] LABS: microscopic required? YES; urine erythrocyte NEGATIVE (NEGATIVE)
[2019-01-22 17:58] VITALS: BP 130/59
== END 2019-01-22 17:58 | disposition home or self-care (01) ==
LOC: ED 11:56
PROVIDERS: Emergency Medicine
DX: N39.0 Urinary tract infection, site not specified (principal); R53.1 Weakness; D64.9 Anemia, unspecified; E11.9 Type 2 diabetes mellitus without complications; I50.9 Heart failure, unspecified; Z90.49 Acquired absence of other specified parts of digestive tract
CPT/HCPCS: J0696; J7030; J7060; Q0092

== ENCOUNTER 2019-02-25 17:34 | Emergency (ER) | payer OTHER, MEDICAID ==
[~2019-02-25] VITALS: Ht 137.2 cm; Wt 48.1 kg
[2019-02-25 17:43] VITALS: Ht 137.2 cm; Wt 48.1 kg
[2019-02-25 18:49] LABS: CALCIUM 9.3 mg/dL (8.5-10.1); CARBON DIOXIDE 24.1 mmol/L (21-32); CHLORIDE SERUM 106 mmol/L (98-107); CREATININE SERUM 0.7 mg/dL (0.6-1.0); GFR1 > 60 mL/min; GLUCOSE SERUM 135 mg/dL (74-106); POTASSIUM SERUM 3.8 mmol/L (3.5-5.1); SODIUM SERUM 141 mmol/L (136-145)
[2019-02-25 18:50] LABS: PLATELET COUNT 329 x10^3mcL (130-400)
[2019-02-25 18:53] LABS: ALBUMIN 3.5 g/dL (3.4-5.0); ALKALINE PHOSPHATASE 737 U/L (46-116); ALT/SGPT 57 U/L (14-59); AST/SGOT 38 U/L (15-37); BILIRUBIN TOTAL 0.5 mg/dL (0.20-1.00); LIPASE 341 IU/L (73-393); TOTAL PROTEIN, SERUM 8.1 g/dL (6.4-8.2)
[2019-02-25 19:00] LABS: BASOPHIL % 0 % (0-2); RED CELL DISTRIBUTION WIDTH 27.8 % (11.5-14.5)
[2019-02-25 20:51] VITALS: BP 145/75
== END 2019-02-25 20:51 | disposition home or self-care (01) ==
LOC: ED 17:34
PROVIDERS: Emergency Medicine
DX: D64.9 Anemia, unspecified (principal); R53.1 Weakness; R10.30 Lower abdominal pain, unspecified; R30.9 Painful micturition, unspecified; R07.89 Other chest pain; R06.02 Shortness of breath; R42 Dizziness and giddiness; E11.9 Type 2 diabetes mellitus without complications; I25.2 Old myocardial infarction; Z90.49 Acquired absence of other specified parts of digestive tract
CPT/HCPCS: 36415; 83880; Q0092

== ENCOUNTER 2019-04-16 17:32 | Inpatient (IN) | payer OTHER, MEDICAID ==
[~2019-04-16] VITALS: Ht 149.9 cm; Wt 48.5 kg
[2019-04-16 17:37] VITALS: Ht 149.9 cm; Wt 48.5 kg
--- NOTE | 2019-04-16 17:44 | NUR ---
EKG IN PROGRESS IN TRIAGE
--- NOTE | 2019-04-16 17:57 | NUR ---
PT BIB ADULT NIECE AND SPOUSE FROM HOME for vaginal area discomfort/abd area discomfort.awaits er md evaluations/assessments.also was able to give urine with assist from adult niece.richelle urbina.
[2019-04-16 18:09] LABS: UA SPECIFIC GRAVITY 1.025 (1.005-1.035); microscopic required? YES; urine erythrocyte 1+ (NEGATIVE)
--- NOTE | 2019-04-16 18:12 | NUR ---
ER MD AT BEDSIDE FOR EVALUATIONS/Assessments.richelle urbina.monitors on.spouse bedside.awaits test results,reevaluations.
[2019-04-16 18:13] LABS: PLATELET COUNT 322 x10^3mcL (130-400)
[2019-04-16 18:24] LABS: CALCIUM 7.9 mg/dL (8.5-10.1); CARBON DIOXIDE 22.5 mmol/L (21-32); CHLORIDE SERUM 109 mmol/L (98-107); CREATININE SERUM 0.7 mg/dL (0.6-1.0); GFR1 > 60 mL/min; GLUCOSE SERUM 188 mg/dL (74-106); POTASSIUM SERUM 4.2 mmol/L (3.5-5.1); SODIUM SERUM 142 mmol/L (136-145)
--- NOTE | 2019-04-16 18:25 | NUR ---
IV ACCESS STARTED ASEPTICALLY,FLUSHED WITH NS.PT TOLERATED PROCEDURES WITH NO INCIDENTS.YOKASTAO,KIMBER.SPOUSE BEDSIDE.AWAITS TEST RESULTS,REEVALUATIONS.
[2019-04-16 18:28] LABS: RED CELL DISTRIBUTION WIDTH 21.3 % (11.5-14.5)
[2019-04-16 18:29] LABS: ALKALINE PHOSPHATASE 845 U/L (46-116); ALT/SGPT 58 U/L (14-59); AST/SGOT 51 U/L (15-37); BILIRUBIN TOTAL 0.6 mg/dL (0.20-1.00); TOTAL PROTEIN, SERUM 7.3 g/dL (6.4-8.2)
--- NOTE | 2019-04-16 18:48 | NUR ---
ASSISSTED TO USE BEDPAN. PT URINE YELLOW ABOUT 30CC, PT STATES HURTS WHEN URINATES.
--- NOTE | 2019-04-16 19:02 | NUR ---
pt endorsed to/accepted by bakari queen.
[2019-04-16 19:09] LABS: BAND NEUTROPHIL 3 % (0-10); MONOCYTE 6 % (0-7); SEGMENTED NEUTROPHILS 72 % (37-75)
[2019-04-16 19:13] LABS: PLATELET MORPHOLOGY PLATELETS NORMAL; rbc morphology (normal/abnorm) ABNORMAL (NORMAL)
--- NOTE | 2019-04-16 19:56 | NUR ---
PT APPEARS TO BE RESTING COMFORTABLY. PT COMPLAINS OF A 10/10 BURNING SENSATION IN THE PELVIC REGION MAINLY WHEN SHE URINATES. MD MADE AWARE. VITAL SIGNS STABLE. RESPIRATIONS EVEN AND UNLABORED. NO ACUTE DISTRESS NOTED.
--- NOTE | 2019-04-16 21:09 | NUR ---
PT MEDICATED PER MD ORDER. VITAL SIGNS STABLE. RESPIRATIONS EVEN AND UNLABORED. NO ACUTE DISTRESS NOTED.
[2019-04-16] MEDS ORDERED: PLA75 (22:26)
[2019-04-16] MEDS ORDERED: AMLODIPINE BES2.5 M1 (22:26)
[2019-04-16] MEDS ORDERED: PROTONIX20 MG (22:26)
--- NOTE | 2019-04-16 22:44 | NUR ---
REPORT GIVEN TO DIPTI ON MST FOR CONTINUATION OF CARE.
--- NOTE | 2019-04-16 22:58 | NUR ---
RECEIVED PT VIA GURNEY FROM E/D, ACCOMPANIED BY RN AND TRANSPORTER. PT A/A/O X 3 (PERSON, PLACE, PURPSOSE), CALM, COOPERATIVE; POOR VISION OU. AMBULATORY, NO GAIT OR BALANCE IMPAIRMENT NOTED. ON TELE # 11, SR + ELEVATED T-WAVES, DENIES CHEST PAIN OR DISCOMOFORT AT THIS TIME. SCD BY BEDSIDE. NO ACUTE RESPIRATORY DISTRESS NOTED. ABD SOFT, ROUND, NON-TENDER, NORMOACTIVE BOWEL SOUNDS, LAST BM 04/15/19, "SOFT, BLACK STOOL". C/O BURNING ON URINATION, FREQUENCY, URGANCY. IV SITE RAC 20G, CDI. ORIENTED PT TO ROOM, BED CONTROLS, CALL LIGHT SYSTEM. SIDE RAILS UP X 2, BED IN LOW POSITION. WILL ENDORSE TO DIANNA JORDAN.
--- NOTE | 2019-04-16 23:00 | NUR ---
REPORT RECEIVED FROM DIANNA TROY. PATIENT WAS SEEN AND IS RESTING COMFORTABLY IN BED. NO DISTRESS NOTED. BREATHING EVEN AND UNLABORED ON ROOM AIR. NO SOB OR RESP DISTRESS NOTED. DENIES CHEST PAIN/PRESSURE. NO C/O PAIN. IV TO THE RAC. PATENT AND INTACT. NO REDNESS OR SWELLING NOTED. REPORTS DSYURIA, URGENCY, AND FREQUENCY. REPORT BLACK/SOFT SOFT. STATES STOOL IS ALWAYS DARK IN COLOR. COMFORT AND SAFETY MEASURES IN PLACE. BED IS LOCKED AND IN THE LOWEST POSITION. SIDE RAILS UP X2. CALL LIGHT IS WITHIN REACH. WILL CONTINUE TO MONITOR.
[2019-04-16 23:14] LABS: CHOLESTEROL/HDL RATIO 6.7
[2019-04-16 23:37] VITALS: BP 122/67
--- NOTE | 2019-04-17 00:05 | NUR ---
C/O 10/10 PAIN IN LOWER ABD. PRN NORCO ADMINISTERED PRESCRIBED. MED EDUCATION GIVEN. NO DISTRESS NOTED. IVF ADMINISTERED AND INFUSING WELL. PATENT AND INTACT. NO REDNESS OR SWELLING NOTED. NO DISTRESS NOTED. BREATHING EVEN AND UNLABORED ON ROOM AIR. SAFETY MEASURES IN PLACE. CALL LIGHT IS WITHIN REACH. WILL CONTINUE TO MONITOR.
--- NOTE | 2019-04-17 02:13 | NUR ---
RESTING IN BED WITH EYES CLOSED. NO DISTRESS NOTED. NO S/S OF PAIN NOTED. BREATHING EVEN AND UNLABORED ON ROOM AIR. NO SOB OR RESP DISTRESS NOTED. IVF INFUSING WELL. SAFETY MEASURES IN PLACE. CALL LIGHT IS WITHIN REACH. WILL CONTINUE TO MONITOR.
--- NOTE | 2019-04-17 04:46 | NUR ---
C/O 101/10 PAIN IN LOWER ABD/BLADDER PAIN. PRN NORCO ADMINISTERED PRESCRIBED. PATIENT STATES THAT NORCO FROM [facility] HELPED. MED EDUCATION GIVEN. IVF INFUSING WELL. SAFETY MEASURES IN PLACE. CALL LIGHT IS WITHIN REACH. WILL CONTINUE TO MONTIOR.
--- NOTE | 2019-04-17 04:51 | NUR ---
CALLED LAB FOR URINE. THEY STILL HAVE THE PATIENT'S URINE AND WILL ADD UDS.
[2019-04-17 05:07] LABS: AMPHETAMINE QUAL UR NONE DETECTED (See below)
[2019-04-17 05:40] VITALS: BP 99/50
--- NOTE | 2019-04-17 05:57 | NUR ---
RESTED THROUGHOUT THE NIGHT. NO ACUTE CHANGES NOTED. NO DISTRESS NOTED. BREATHING EVEN AND UNLABORED ON ROOM AIR. NO SOB NOTED. DENIES CHEST PAIN/PRESSURE. C/O LOWER ABD PAIN/BLADDER PAIN X2. IVF INFUSING WELL. SAFETY MEASURES IN PLACE. ALL NEEDS AND CONCERNS ADDRESSED. CALL LIGHT IS WITHIN REACH. WILL ENDORSE CARE TO DAY SHIFT RN.
[2019-04-17 06:14] LABS: PLATELET COUNT 271 x10^3mcL (130-400)
[2019-04-17 06:23] LABS: CALCIUM 7.9 mg/dL (8.5-10.1); CARBON DIOXIDE 25.3 mmol/L (21-32); CHLORIDE SERUM 112 mmol/L (98-107); CREATININE SERUM 0.5 mg/dL (0.6-1.0); GFR1 > 60 mL/min; GLUCOSE SERUM 106 mg/dL (74-106); MAGNESIUM 2.1 mg/dL (1.8-2.4); PHOSPHOROUS 3.4 mg/dL (2.5-4.9); POTASSIUM SERUM 4.3 mmol/L (3.5-5.1); SODIUM SERUM 144 mmol/L (136-145)
[2019-04-17 06:41] LABS: BASOPHIL % 0 % (0-2); RED CELL DISTRIBUTION WIDTH 21.3 % (11.5-14.5)
--- NOTE | 2019-04-17 07:40 | NUR ---
PATIENT RESTING IN BED COMFORTABLY. PATIENT DENIES PAIN, NO ACUTE DISTRESS NOTED. PATIENT A/OX3, PATIENT IS FORGETFUL AT TIMES. TELE MONITOR IN PLACE, PATIENT DENIES CHEST PAIN. PATIENT DENIES SOB, ON ROOM AIR. PATIENT C/O BURNING UPON URINATION. NS IV INFUSING TO RAC AT 100ML/HR, IV SITE CDI & PATENT, NO S/S OF INFILTRATION. INSTRUCTED PATIENT TO CALL FOR ASSISTANCE WHEN NEEDED, CALL LIGHT WITHIN REACH, BED IN LOW POSITION FOR SAFETY PRECAUTION.
--- NOTE | 2019-04-17 08:49 | NUR ---
PATIENT WAS C/O NAUSEA & VOMITTING, MEDICATED PATIENT WITH ZOFRAN PER PROTOCOL (SEE EMAR). PATIENTS GOWN WAS SOILED WITH VOMIT, PATIENTS GOWN WAS CHANGED. WILL CONTINUE TO MONITOR.
[2019-04-17 09:26] LABS: rbc morphology (normal/abnorm) ABNORMAL (NORMAL)
[2019-04-17 10:03] VITALS: BP 90/49
--- NOTE | 2019-04-17 11:15 | NUR ---
DR STORM AWARE PATIENT BP WAS 90/49 MAP 63, DR. TONY INCREASED IV INFUSION FROM 100ML/HR TO 120ML/HR. WILL CARRY OUT ORDERS AT THIS TIME.
[2019-04-17 12:39] VITALS: BP 90/49
[2019-04-17 13:41] VITALS: BP 94/50
--- NOTE | 2019-04-17 13:42 | NUR ---
PATIENT WAS C/O OF ABDOMINAL PAIN 02/22, MEDICATED PATIENT WITH NORCO PER PROTOCOL (SEE EMAR). PATIENT BP INCREASED SLIGHTY TO 94/50 HR 71 MAP 69, DR STORM AWARE. WILL CONTINUE TO MONITOR BP & MANAGE PAIN. CALL LIGHT WITHIN REACH, BED IN LOW POSITION. ALL NEEDS MET AT THIS TIME.
[2019-04-17 16:53] VITALS: BP 100/50
--- NOTE | 2019-04-17 17:15 | NUR ---
PATIENT RESTING IN BED COMFORTABLY, FAMILY AT BEDSIDE. NO ACUTE DISTRESS NOTED. PATIENT DENIES PAIN. TELE MONITOR IN PLACE. PATIENT DENIES SOB, ON ROOM AIR. NS IV INFUSING TO RAC AT 120ML/HR, IV SITE CDI & PATENT, NO S/S OF INFILTRATION. ALL NEEDS MET AT THIS TIME. CALL LIGHT WITHIN REACH, BED IN LOW POSITION FOR SAFETY PRECAUTION. WILL CONTINUE TO MONITOR AND ENDORSE REPORT.
--- NOTE | 2019-04-17 19:30 | NUR ---
RECEIVED PT IN BED AWAKE, ALERT,ORIENTED X4. LUNGS CTA. NO SOB ON ROOM AIR. BOWEL SOUNDS ACTIVE. PT STATED SHE STILL HAS BURNING SENSATION ON URINATION. W/ IVF NS AT 12O CC/HR VIA RTAC. CALL LIGHT W/IN REACH.
[2019-04-17 22:18] VITALS: BP 104/54
--- NOTE | 2019-04-18 02:47 | NUR ---
PT C/O PAIN IN HER STOMACH AND BLADDER 04/24. NORCO 7.5/325 MG PO GIVEN.
--- NOTE | 2019-04-18 05:15 | NUR ---
PT SLEPT AT LONG INTERVALS. SHE COMPLAINED OF STOMACH AND BLADDER PAIN X1 AND WAS MEDICATED W/ NORCO W/ GOOD RELIEF. NO C/O ANY OTHER PAIN AT THIS TIME. AHE REMAINS ALERT AND ORIENTED X4. NO EPISODE OF SOB, CHEST PAIN. IVF NS INFUSING AT 120 CC/HR VIA RTAC.
[2019-04-18 06:34] LABS: PLATELET COUNT 258 x10^3mcL (130-400)
[2019-04-18 06:48] LABS: BASOPHIL % 0 % (0-2); RED CELL DISTRIBUTION WIDTH 21.9 % (11.5-14.5)
[2019-04-18 06:51] VITALS: BP 100/52
[2019-04-18 07:00] LABS: CALCIUM 7.9 mg/dL (8.5-10.1); CARBON DIOXIDE 22.9 mmol/L (21-32); CHLORIDE SERUM 109 mmol/L (98-107); CREATININE SERUM 0.6 mg/dL (0.6-1.0); GFR1 > 60 mL/min; GLUCOSE SERUM 98 mg/dL (74-106); MAGNESIUM 1.8 mg/dL (1.8-2.4); PHOSPHOROUS 3.9 mg/dL (2.5-4.9); POTASSIUM SERUM 3.9 mmol/L (3.5-5.1); SODIUM SERUM 141 mmol/L (136-145)
--- NOTE | 2019-04-18 07:30 | NUR ---
RECEIVED REPORT FROM DIANNA PADILLA. PT IS ALERT AND ORIENTED X3. PUPILS REACTIVE TO LIGHT. PT IS BREATHING E.U ON RA. LUNG SOUNDS CLEAR TO BILATERAL UPPER LOBES, DIMINISHED TO BILATERAL LOWER LOBES. PULSES MODERATE X4. CAP REFILL <3 SECS X4. SKIN IS WARM AND CONSISTENT WITH ETHNICITY. PERIPHERAL IV TO RAC PATENT, DRESSING CDI. NS INFUSING AT 125 ML/HR. ABD IS SOFT AND ROUNDED WITH ACTIVE BOWEL SOUNDS X4Q. PT REFUSING TO EAT, STATES SHE IS NOT HUNGRY, POOR APPETITE. GENERALIZED WEAKNESS. PT ABLE TO VOIDS WITH ASSISTANCE. SKIN INTACT. ALL QUESTIONS AND CONCERNS ANSWRED.
[2019-04-18 08:30] VITALS: BP 94/52
[2019-04-18 09:50] LABS: rbc morphology (normal/abnorm) ABNORMAL (NORMAL)
[2019-04-18 12:40] VITALS: BP 107/55
[2019-04-18 13:23] VITALS: BP 114/61
--- NOTE | 2019-04-18 13:23 | NUR ---
RECEIVED FROM NURSE MACK. PT AWAKE AND ALERT. BREATHING EVEN AND UNLABORED ON ROOM AIR. STATED HAS OCCASSIONAL PAIN TO BLADDER AND ABDOMEN. DENIES HAVING PAIN AT THIS TIME. IVF INFUSING WELL. IV SITE TO RIGHT AC FREE FROM ERYTHEMA OR SWELLING
--- NOTE | 2019-04-18 13:23 | NUR ---
ALL CARE ENDORSED TO RELIEF RN. ALL QUESTIONS AND CONCERNS ANSWERED.
--- NOTE | 2019-04-18 14:31 | NUR ---
EYES CLOSED, BREATHING EVEN AND UNLABORED. CALL LIGHT WITHIN EASY REACH. HOB ELEVATED 30 DEG
--- NOTE | 2019-04-18 16:32 | NUR ---
ASSISTED PT TO AMBULATED TO NURSE STATION AND BACK. DENIES HAVING DIZZINESS. GAIT SLOW. STATED "IT FEELS GOOD"
[2019-04-18 16:35] VITALS: BP 109/56
--- NOTE | 2019-04-18 18:48 | NUR ---
AWAKE AND ALERT, IN APPARENT DISTRESS. BREATHING EVEN AND UNLABORED.
--- NOTE | 2019-04-18 19:16 | NUR ---
AWAKE AND ALERT, IN NO ACUTE DISTRESS. IVF INFUSING WELL, IV SITE FREE FROM ERYTHEMA OR SWELLING. ENDORSED TO NURSE ALONSO
--- NOTE | 2019-04-18 19:30 | NUR ---
PT IS A/O x3, FORGETFUL AT TIMES. ON TELE #11, NSR. DENIES ANY CHEST PAIN OR PRESSURE. PULSES ARE PRESENT. NO EDEMA IS NOTED. LUNGS CLEAR IN ALL FEILDS. ON RA. EQUAL CHEST RISE AND FALL. NO SIGN OF RESP DISTRESS. BOWEL SOUNDS PRESENT x4. DENIES ANY ABD PAIN OR DISTRESS. PT COMPLAIN OF MILD DYSURIA WHEN VOIDING. GENERAL WEAKNESS. SKIN IS WARM AND INTACT. DENIES ANY PAIN AT THIS TIME. IV ON RAC IS INTACT AND PATENT. NO SIGN OF INFITLRATION OR IRRITATION NOTED. BED IS AT LOWEST SETTING. CALL LIGHT WITHIN REACH. WILL CONTINUE TO MONITOR.
[2019-04-18 22:21] VITALS: BP 126/72
--- NOTE | 2019-04-19 00:24 | NUR ---
PT IS RESTING IN BED WITH BOTH EYES CLOSED. BREATHING EVEN AND UNLABORED. NO SIGN OF DISTRESS NOTED. IV INTACT. BED IS AT LOWEST SETTING. CALL LIGHT WITHIN REACH. WILL CONTINUE TO MONITOR.
--- NOTE | 2019-04-19 06:35 | NUR ---
PT IS RESTING IN BED WITH BOTH EYES CLOSED. BREATHING EVEN AND UNLABORED. NO SIGN OF DISTRESS NOTED. NO ACUTE EVENT OCCURED AT NIGHT. BED IS AT LOWEST SETTING. CALL LIGHT WITHIN REACH. WILL ENDORSE TO AM NURSE.
[2019-04-19 06:57] VITALS: BP 127/77
--- NOTE | 2019-04-19 07:48 | NUR ---
A+OX3, NO RESPRIATORY DISTRESS NOTED, TELE 11, PULSES MODERATE AND EQUAL FRANCHESCA, NO EDEMA NOTED, LUNG SOUNDS CTA, TOLERATING RA, BOWEL SOUNDS ACTIVE, VOIDING FREELY, DYSURIA, GENERALIZED WEAKNESS, SKIN INTACT, IV IN RAC WITH NS @ 120 ML/HR, SITE WNL.
[2019-04-19 08:27] VITALS: BP 102/55
--- NOTE | 2019-04-19 09:26 | NUR ---
PT RESTING IN BED, VOIDED, LINENS AND GOWN CHANGED, NO RESPRIATORY DISTRESS NOTED, CALL LIGHT WITHIN REACH.
--- NOTE | 2019-04-19 11:59 | NUR ---
PT RESTING IN BED, COMPLAINING OF BURNING AND PAIN DURING URINATION, TYLENOL PO GIVEN, CALL LIGHT WITHIN REACH.
[2019-04-19 13:15] VITALS: BP 126/67
--- NOTE | 2019-04-19 13:45 | NUR ---
PT RESTING IN BED, NO RESPIRATORY DISTRESS NOTED, STATES TYLENOL PO RELIEVED PAIN, CALL LIGHT WITHIN REACH, FAMILY AT BEDSIDE.
--- NOTE | 2019-04-19 16:17 | NUR ---
PT RESTING IN BED WITH BOTH EYES CLOSED, APPEARS TO BE SLEEPING, NO RESPIRATORY DISTRESS NOTED, AT BEDSIDE, CALL LIGHT WITHIN REACH.
--- NOTE | 2019-04-19 16:26 | NUR ---
PT RESTING IN BED, NO RESPIRATORY DISTRESS NOTED, DENIES PAIN, STATES DYSURIA HAS GONE AWAY, AT BEDSIDE, CALL LIGHT WITHIN REACH.
[2019-04-19 16:38] VITALS: BP 130/72
--- NOTE | 2019-04-19 18:41 | NUR ---
PT RESTING IN BED, NO RESPRIATORY DISTRESS NOTED, STATES PAIN IS TOLERABLE AT THIS TIME, CALL LIGHT WITHIN REACH.
--- NOTE | 2019-04-19 18:57 | NUR ---
PT COMPLAINING OF CONSTIPATION, STATES SHE HAS BEEN TRYING TO HAVE BM ALL DAY, PRN COLACE GIVEN, NO RESPRIATORY DISTRESS NOTED, CALL LIGHT WITHIN REACH.
--- NOTE | 2019-04-19 19:30 | NUR ---
RECIEVED PT IN NO ACUTE DISTRESS. AOX4. TELE #11, SR. DENIES CP. BREATHING E/U. DENIES SOB. BOWEL SOUNDS ACTIVE. C/O CONSTIPATION. C/O DYSURIA UPON URINATION. IV TO RAC, PATENT. BED IN LOWEST POSITION, 2 SIDE RAILS UP, CALL LIGHT IN REACH. INSTRUCTED TO CALL FOR ASSISTANCE.
--- NOTE | 2019-04-19 19:38 | NUR ---
ENDORSED CARE TO WALI BUSTAMANTE.
[2019-04-19 20:54] VITALS: BP 134/63
--- NOTE | 2019-04-20 00:35 | NUR ---
RESTING WITH EYES CLOSED. BREATHING E/U. NO ACUTE DISTRESS NOTED. WILL CONTINUE TO MONITOR.
[2019-04-20 05:24] VITALS: BP 123/67
--- NOTE | 2019-04-20 05:58 | NUR ---
IV TO RAC LEAKING, DC INTACT. NEW ACCESS ESTABLISHED TO R HAND THUMB, 22G. NO ACUTE DISTRESS NOTED. NO ACUTE CHANGES. WILL ENDORSE TO ONCOMING RN.
--- NOTE | 2019-04-20 07:53 | NUR ---
A+OX4, NO RESPRIATORY DISTRESS NOTED, TELE 11, PULSES MODERATE AND EQUAL FRANCHESCA, NO EDEMA NOTED, LUNG SOUNDS CA, TOLERATING RA, BOWEL SOUNDS ACTIVE, COMPLAINING OF CONSTIPATION, PT HAS BEEN COLACE PRN X2, VOIDING FREELY, DYSURIA, GENERALIZED WEAKNESS, SKIN INTACT, IV IN R THUMB WITH NS @ 120 ML/HR, SITE WNL.
[2019-04-20 08:08] VITALS: BP 123/67
[2019-04-20 08:40] VITALS: BP 131/73
--- NOTE | 2019-04-20 09:49 | NUR ---
PT RESTING IN BED, STATES SHE DOES NOT WANT TO BE DISCHARGED TODAY AND IS STILL CONSTIPATED, COMPLAINING OF OF DYSURIA, TYLENOL PO GIVEN, CALL LIGHT WITHIN REACH.
[2019-04-20] MEDS ORDERED: LEVOFLOXACIN500 M1 PO (10:06)
--- NOTE | 2019-04-20 10:48 | NUR ---
PT COMPLAINING OG CONSTIPATION, LACTULOSE PO GIVEN. OFFERED PT SUPPOSITORY AND PT STATES SHE WOULD LIKE TO SEE IF LACTULOSE WILL WORK FIRST. CALL LIGHT WITHIN REACH.
--- NOTE | 2019-04-20 12:14 | NUR ---
AFTER RECEIVING LACTULOSE, PT STILL HAS NOT HAD BM. I AGAIN OFFERED PT SUPPOSITORY AND PT STATED SHE WOULD LIKE TO WAIT UNTIL AFTER LUNCH TO RECEIVE SUPPOSITORY. CALL LIGHT WITHIN REACH.
[2019-04-20] MEDS ORDERED: MOT600 PO (12:33)
[2019-04-20] MEDS ORDERED: PYR100 PO (12:33)
[2019-04-20 12:50] VITALS: BP 124/65
--- NOTE | 2019-04-20 16:02 | NUR ---
PT AND DAUGHTER HAVEN'T CALLED BACK FROM MULTIPLE CALLS THAT WAS MADE BY STAFF ABOUT THE DISCHARGE. SPOKE TO DAVE(SLIVER FORMER) MADE HER AWARE OF ABOVE AND REPORTED TO HER THAT FAMILY MEMBER UP TIL NOW HAS NOT CONTACTED THE UNIT SINCE THIS MORNING TO [employer] THE PT FOR D/C HOME. CALLED AND SPOKE TO DIANA(N.P.) AND MADE HER AWARE OF ABOVE. EBONY RN SPOKE TO DAVE AND EXPLAINED TO HER OF UNABLE TO GET A HOLD OF FAMILY MEMBER. (STAVE INSPECTOR) MADE AWARE OF ABOVE.
--- NOTE | 2019-04-20 16:23 | NUR ---
TRIED CALLING THE CELL [phone] NAME TO ANASTASIABud TAYLOR AND FINALLY SOMEONE RESPONDED WHICH STATED IT'S THE PT SON, LEFT A MESSAGE TO HIM AND TOLD HIM TO LET HIS FATHER KNOW THAT PT IS READY FOR DISCHARGE HOME, ANASTASIA(SON) SAYS HE WILL LET HIS FATHER KNOW. EBONY BUSTAMANTE ASSIGNED TO THIS PT MADE AWARE OF ABOVE.
--- NOTE | 2019-04-20 16:40 | NUR ---
PT RESTING IN BED, NO RESPIRATORY DISTRESS NOTED, DENIES PAIN, CALL LIGHT WITHIN REACH.
--- NOTE | 2019-04-20 19:30 | NUR ---
RECEIVED PT FROM DAY SHIFT RN. PT AAOX4. DENIES [place]/DIZZINESS. TELE 11 SR. DENIES CHEST PAIN/PRESSURE. NO IV SITE PT ACCIDENTLY PULLED IT OUT, CATH INTACT. NO REDDNESS/BLEEDING. BREATHING EVEN AND UNLABORED ON RA WITH NO SOB NOTED. ABD SOFT/ROUND ACTIVE BOWEL SOUNDS, DENIES ABD PAIN/N/V. PER PT HAS BEEN HAVING LOOSE STOOL ALL DAY AFTER LACTULOSE GIVEN. GENERALIZED WEAKNESS. NO SIGNS OF DISTRESS. CALL BUTTON WITHIN REACH. SAFETY PRECAUTIONS IN PLACE. WILL MONITOR.
--- NOTE | 2019-04-20 19:43 | NUR ---
DR HILL MADE AWARE PT FAMILY IS UNABLE TO [employer]RI[employer] BATH OPERATOR PATIENT TONIGHT. DR HILL ALSO MADE AWARE PT PULLED OUT IV AND IS REFUSING NEW IV INSERTION, PER DR HILL OKAY FOR PT NOT TO HAVE IV INSERTION.
[2019-04-20 20:57] VITALS: BP 125/65
--- NOTE | 2019-04-21 01:23 | NUR ---
PT RESTING. BREATHING EVEN AND UNLABORED ON RA WITH NO SOB NOTED. IV PATENT, INFUSING WELL. NO SIGNS OF DISTRESS. SAFETY PRECAUTIONS IN PLACE. WILL CONTINUE TO MONITOR.
--- NOTE | 2019-04-21 05:06 | NUR ---
PT SLEPT ON AND OFF THROUGHOUT THE NIGHT WITH NO SIGNS OF DISTRESS. PT REFUSED IV FLUIDS THROUGHOUT THE NIGHT, DR HILL MADE AWARE. PT AMBULATORY WITH BRP, GENERALIZED WEAKNESS, WALKS WITH ASSISTANCE. PER PT HAD LOOSE STOOL X1. PT MEDICATED PER EMAR. DENIES ANY PAIN/DISTRESS. NO ACUTE DISTRESS NOTED. CALL BUTTON WITHIN REACH. SAFETY PRECAUTIONS IN PLACE. WILL CONTINUE TO MONITOR AND ENDORSE CARE TO DAY SHIFT RN.
[2019-04-21 05:49] VITALS: BP 113/63
--- NOTE | 2019-04-21 07:40 | NUR ---
RECEIVED PT IN BED. ASSESSED AND DOCUMENTED. DENIES PAIN THIS TIME. STABLE. SAFTEY PRECAUTIONS ARE IN PLACE. WILL MONITOR.
--- NOTE | 2019-04-21 07:46 | NUR ---
PT RESTING, DENIES ANY PAIN NO SIGNS OF DISTRESS. ENDORSED CARE TO DAY SHIFT RN, ALL QUESTIONS ADDRESSED.
[2019-04-21 09:12] VITALS: BP 122/67
--- NOTE | 2019-04-21 09:40 | NUR ---
PT C/O ABDOMINAL PAIN,10/23, REQUESTED FOR TYLENOL PO AND GIVEN AT 0840. REASSESSED PT PAIN NOW AND PT IS SLEEPING, NO SIGNS OF ANY PAIN.
[2019-04-21 13:42] VITALS: BP 122/67
--- NOTE | 2019-04-21 13:51 | NUR ---
PT C/O RLE PAIN,10/23. ADMINISTERED NORCO PO ORDERED AT 1251 AND REASSESSED AT 1351, PT SAID SHE DOESNOT HAVE PAIN ANYMORE. PT SAID SHE HAS ON AND OFF BLE AND JOINT PAIN AT HOME AND SHE TAKE MOTRIN OR TYLENOL PO AT HOME. THIS TIME REQUESTED NORCO PO.
--- NOTE | 2019-04-21 13:55 | NUR ---
DISCHARGE INSTRUCTIONS GIVEN. PB SIGNED AND SENT WITH PT. IV AND TELE REMOVED. PT DENIES ANY PAIN THIS TIME. STABLE. AT BEDSIDE, HE SAID HE CANNOT DRIVE BUT THEY SAID THEY WILL HAVE ANOTHER FAMILY MEMBER GIVE THEM RIDE AND THEY HAVE TO BE IN THE LOBBY. NO DISTRESS NOTED. STUDENT NURSE WHEELED PT DOWN TO LOBBY ACCOMPANIED WITH HER . PT DC HOME.
== END 2019-04-21 14:06 | disposition home or self-care (01) | DRG 206 ==
LOC: ED 17:32 → DU 22:16
PROVIDERS: Emergency Medicine; ADMIT Internal Medicine
DX: M94.0 Chondrocostal junction syndrome [Tietze] (principal); N39.0 Urinary tract infection, site not specified; E44.1 Mild protein-calorie malnutrition; N13.30 Unspecified hydronephrosis; B96.20 Unspecified Escherichia coli [E. coli] as the cause of diseases classified elsewhere; D75.1 Secondary polycythemia; D63.8 Anemia in other chronic diseases classified elsewhere; I50.9 Heart failure, unspecified; I25.2 Old myocardial infarction; Z68.20 Body mass index [BMI] 20.0-20.9, adult; Z95.5 Presence of coronary angioplasty implant and graft; Z79.82 Long term (current) use of aspirin
CPT/HCPCS: 83880; G0378; J0696; J2405; J7030; J7060

== ENCOUNTER 2019-08-20 09:37 | Inpatient (IN) | payer OTHER, MEDICAID ==
[~2019-08-20] VITALS: Ht 142.2 cm; Wt 53.5 kg
[~2019-08-20 09:37] MED LIST changes: +AMLODIPINE BES2.5 M1; +LEVOFLOXACIN500 M1 PO; +MOT600 PO; +PLA75; +PROTONIX20 MG; +PYR100 PO
[2019-08-20 09:42] VITALS: Ht 142.2 cm; Wt 53.5 kg
[2019-08-20 10:18] LABS: BASOPHIL % 0 % (0-2); PLATELET COUNT 283 x10^3mcL (130-400); RED CELL DISTRIBUTION WIDTH 19.1 % (11.5-14.5)
[2019-08-20 10:50] LABS: ALKALINE PHOSPHATASE 781 U/L (46-116); ALT/SGPT 58 U/L (14-59); AST/SGOT 37 U/L (15-37); BILIRUBIN TOTAL 0.65 mg/dL (0.20-1.00); CARBON DIOXIDE 25.6 mmol/L (21-32); CHLORIDE SERUM 105 mmol/L (98-107); CREATININE SERUM 0.6 mg/dL (0.6-1.0); GFR1 > 60 mL/min; GLUCOSE SERUM 132 mg/dL (74-106); POTASSIUM SERUM 4.2 mmol/L (3.5-5.1); SODIUM SERUM 141 mmol/L (136-145)
[2019-08-20 10:51] LABS: ALBUMIN 3.3 g/dL (3.4-5.0)
[2019-08-20 13:03] LABS: CHOLESTEROL/HDL RATIO 4.3
[2019-08-20 13:08] LABS: T3 TOTAL 0.95 ng/mL
[2019-08-20 13:15] LABS: FREE T4 1.01 ng/dL (0.76-1.46); FREE THYROXINE INDEX 2.3 ug/dL (1.4-4.5); T4(THYROXINE) 6.9 ug/dL (4.7-13.3)
[2019-08-20 13:47] LABS: MAGNESIUM 2.1 mg/dL (1.8-2.4); PHOSPHOROUS 3.8 mg/dL (2.5-4.9)
[2019-08-20 14:12] VITALS: BP 129/53
[2019-08-20 18:31] VITALS: BP 123/58
[2019-08-20 20:20] VITALS: BP 108/51
[2019-08-21 05:04] VITALS: BP 118/56; BP 135/75
[2019-08-21 06:47] LABS: BASOPHIL % 0.2 % (0-2)
[2019-08-21 06:58] LABS: CALCIUM 8.3 mg/dL (8.5-10.1); CARBON DIOXIDE 24.7 mmol/L (21-32); CHLORIDE SERUM 107 mmol/L (98-107); CREATININE SERUM 0.5 mg/dL (0.6-1.0); GFR1 > 60 mL/min; GLUCOSE SERUM 92 mg/dL (74-106); POTASSIUM SERUM 4.4 mmol/L (3.5-5.1); SODIUM SERUM 141 mmol/L (136-145)
[2019-08-21 07:44] LABS: RED CELL DISTRIBUTION WIDTH 18.9 % (11.5-14.5)
[2019-08-21 08:29] VITALS: BP 121/58
[2019-08-21 08:48] LABS: PLATELET COUNT 257 x10^3mcL (130-400)
[2019-08-21 08:49] LABS: rbc morphology (normal/abnorm) NORMAL (NORMAL)
[2019-08-21 11:56] VITALS: BP 119/63
[2019-08-21 16:10] VITALS: BP 108/62
[2019-08-21 18:18] LABS: microscopic required? NO
[2019-08-21 18:24] LABS: urine erythrocyte NEGATIVE (NEGATIVE)
[2019-08-21 18:43] LABS: AMPHETAMINE QUAL UR NONE DETECTED (See below)
[2019-08-21 20:45] VITALS: BP 103/55
[2019-08-22] VITALS (7 sets, daily range): BP systolic 93–123; BP diastolic 50–67
[2019-08-22 06:32] LABS: BASOPHIL % 0.1 % (0-2); PLATELET COUNT 264 x10^3mcL (130-400)
[2019-08-22 06:51] LABS: CALCIUM 8.3 mg/dL (8.5-10.1); CARBON DIOXIDE 25.2 mmol/L (21-32); CHLORIDE SERUM 105 mmol/L (98-107); CREATININE SERUM 0.6 mg/dL (0.6-1.0); GFR1 > 60 mL/min; GLUCOSE SERUM 91 mg/dL (74-106); POTASSIUM SERUM 4.2 mmol/L (3.5-5.1); SODIUM SERUM 140 mmol/L (136-145)
[2019-08-22 06:57] LABS: RED CELL DISTRIBUTION WIDTH 18.6 % (11.5-14.5)
[2019-08-22] MEDS ORDERED: ATORVASTATIN CA20 M1 GT (14:24)
[2019-08-22] MEDS ORDERED: IMD60 PO (14:27)
[2019-08-22] MEDS ORDERED: ZESTRIL5 MG PO (14:29)
[2019-08-22 21:14] LABS: CALCIUM 8.9 mg/dL (8.5-10.1); CARBON DIOXIDE 23.6 mmol/L (21-32); CHLORIDE SERUM 101 mmol/L (98-107); CREATININE SERUM 0.7 mg/dL (0.6-1.0); GFR1 > 60 mL/min; GLUCOSE SERUM 106 mg/dL (74-106); PHOSPHOROUS 4.7 mg/dL (2.5-4.9); POTASSIUM SERUM 3.8 mmol/L (3.5-5.1); SODIUM SERUM 136 mmol/L (136-145)
[2019-08-23 06:06] VITALS: BP 94/43
[2019-08-23 06:34] LABS: PLATELET COUNT 273 x10^3mcL (130-400)
[2019-08-23 06:41] LABS: BASOPHIL % 0 % (0-2); RED CELL DISTRIBUTION WIDTH 18.5 % (11.5-14.5)
[2019-08-23 06:52] LABS: CALCIUM 8.6 mg/dL (8.5-10.1); CARBON DIOXIDE 24.3 mmol/L (21-32); CHLORIDE SERUM 104 mmol/L (98-107); CREATININE SERUM 0.8 mg/dL (0.6-1.0); GFR1 > 60 mL/min; GLUCOSE SERUM 69 mg/dL (74-106); MAGNESIUM 2.2 mg/dL (1.8-2.4); PHOSPHOROUS 5.6 mg/dL (2.5-4.9); POTASSIUM SERUM 4.7 mmol/L (3.5-5.1); SODIUM SERUM 139 mmol/L (136-145)
[2019-08-23 08:57] VITALS: BP 101/46
[2019-08-23 12:50] VITALS: BP 99/55
[2019-08-23 16:20] VITALS: BP 98/59
[2019-08-23 19:30] VITALS: BP 102/50
[2019-08-24 05:58] VITALS: BP 100/54
[2019-08-24 08:26] VITALS: BP 84/47
[2019-08-24 12:59] VITALS: BP 108/66
== END 2019-08-24 14:54 | disposition home or self-care (01) | DRG 206 ==
LOC: ED 09:37 → DU 12:16 → MU 12:16 → DU 13:20 → MU 08-21 15:29
PROVIDERS: ADMIT Internal Medicine
DX: M94.0 Chondrocostal junction syndrome [Tietze] (principal); E44.1 Mild protein-calorie malnutrition; E78.5 Hyperlipidemia, unspecified; K21.9 Gastro-esophageal reflux disease without esophagitis; I11.9 Hypertensive heart disease without heart failure; I25.10 Atherosclerotic heart disease of native coronary artery without angina pectoris; I25.5 Ischemic cardiomyopathy; D63.8 Anemia in other chronic diseases classified elsewhere; I25.2 Old myocardial infarction; Z68.26 Body mass index [BMI] 26.0-26.9, adult; Z95.5 Presence of coronary angioplasty implant and graft
CPT/HCPCS: 82962; 83880; 84439; 97112-GP; G0378; J2405; J7030; J7613; Q0092

== ENCOUNTER 2019-10-18 08:19 | Inpatient (IN) | payer OTHER, MEDICAID ==
[~2019-10-18] VITALS: Ht 129.5 cm; Wt 49.0 kg
[~2019-10-18 08:19] MED LIST changes: +ATORVASTATIN CA20 M1 GT; +IMD60 PO; +ZESTRIL5 MG PO
[2019-10-18 08:25] VITALS: Ht 129.5 cm; Wt 49.0 kg
--- NOTE | 2019-10-18 08:26 | NUR ---
PTS DAUGHTER RAIN [phone] STATED TO CALL WITH PTS UPDATE.
--- NOTE | 2019-10-18 08:30 | NUR ---
pt bib friend from home for c.p since last night on/off.denies c.p. now.awaits er md evaluations/assessments.richelle urbina.monitors on.
--- NOTE | 2019-10-18 08:31 | NUR ---
PT WENT STRAIGHT TO ROOM FOR EKG AND VITAL SIGNS WITH PRIMARY NURSE AT BEDSIDE.
--- NOTE | 2019-10-18 08:35 | NUR ---
er md at bedside for evaluations/assessments.richelle urbina.awaits ekg,reevaluations.monitors on.
--- NOTE | 2019-10-18 08:50 | NUR ---
IV ACCESS STARTED ASE[TICALLY WITH ASsist from [facility],blood drawn/sent to lab.flusged with ns .pt tolerated procedures with no incidents.awaits test results,reevaluations.richelle urbina.monitors on.
--- NOTE | 2019-10-18 09:15 | NUR ---
RESTING ER # 12 hob @ 45 degrees sr up,aao,nad.denies discomfort at this time.regular mask given,pt own scarf removed from nose .pt tolerated procedues with no incidents.awaits test results reevaluations.r.r. 21.
[2019-10-18 09:32] LABS: CALCIUM 8.2 mg/dL (8.5-10.1); CARBON DIOXIDE 21.6 mmol/L (21-32); POTASSIUM SERUM 5.1 mmol/L (3.5-5.1)
[2019-10-18 09:44] LABS: BILIRUBIN TOTAL 0.86 mg/dL (0.20-1.00); TOTAL PROTEIN, SERUM 6.5 g/dL (6.4-8.2)
[2019-10-18 09:45] LABS: ALBUMIN 2.9 g/dL (3.4-5.0)
[2019-10-18 09:58] LABS: PLATELET COUNT 313 x10^3mcL (130-400)
[2019-10-18 10:03] LABS: RED CELL DISTRIBUTION WIDTH 24.9 % (11.5-14.5)
--- NOTE | 2019-10-18 10:03 | NUR ---
DIABETES TRAINER CALLED FOR HGB/HCT OF 4.3/14.0.noe ulloa made aware.
--- NOTE | 2019-10-18 10:24 | NUR ---
RESTING ASLEEP AT TIMES ER # 12 HOB @ 45 DEGREESSR UP,NAD.MONITORS ON.AWAITS REEVALUATIONS.vs as shown.
[2019-10-18 10:45] LABS: BAND NEUTROPHIL 0 % (0-10); BASOPHIL 0 % (0-2); MONOCYTE 12 % (0-7); SEGMENTED NEUTROPHILS 65 % (37-75)
[2019-10-18 10:47] LABS: PLATELET MORPHOLOGY GIANT PLATELET SEEN; ovalocyte/elliptocyte 1+; rbc morphology (normal/abnorm) ABNORMAL (NORMAL); tear drop cell (dacryocyte) 1+
--- NOTE | 2019-10-18 11:43 | NUR ---
RESTING MONITORS ON AAO,NAD.AWAITS REEVALUATIONS.PT TOLERATED PROCEDURES WITH NO INCIDENTS.
--- NOTE | 2019-10-18 11:56 | NUR ---
PT ENDORSED TO/ACCEPTED by [facility] queen.awaits transprot services,reevaluations.
[2019-10-18 12:45] LABS: CHOLESTEROL/HDL RATIO 2.6; MAGNESIUM 2.4 mg/dL (1.8-2.4); PHOSPHOROUS 4.8 mg/dL (2.5-4.9)
[2019-10-18 12:57] LABS: FREE T4 1.14 ng/dL (0.76-1.46); FREE THYROXINE INDEX 2.4 ug/dL (1.4-4.5); T4(THYROXINE) 6.6 ug/dL (4.7-13.3)
[2019-10-18 13:34] VITALS: BP 95/36
[2019-10-18 13:40] VITALS: BP 83/41
[2019-10-18 14:00] VITALS: BP 95/36
--- NOTE | 2019-10-18 14:00 | NUR ---
BP 95/36, HR 67, 97.3, 100%, RR 22, BLOOD TRANSFUSION STARTED. NO HYPERSENSITIVITY REACTION.
--- NOTE | 2019-10-18 14:22 | NUR ---
RECEIVED FROM [employer] FI[employer] TECHNICIAN THAT HGB IS TOO LOW , THUS A1C CANNOT BE DETECTED. [employer] TECHNICIAN WILL CANCEL A1C , REORDERED A1C AFTER BLOOD TRANSFUSION.
[2019-10-18 14:48] LABS: T3 TOTAL 0.83 ng/mL
[2019-10-18 15:51] LABS: microscopic required? YES; urine erythrocyte 1+ (NEGATIVE)
--- NOTE | 2019-10-18 17:40 | NUR ---
JORDAN CATHETER INSERTION DONE. BLOOD TRANSFUSION DONE.
--- NOTE | 2019-10-18 18:20 | NUR ---
BP 100/48, HR 65, RR 20, 100% O2 SAT, 97.4F. BLOOD TRANSFUSION STARTED.
[2019-10-18 18:34] VITALS: BP 100/48
--- NOTE | 2019-10-18 18:51 | NUR ---
MEDICATIONS GIVEN PER EMAR. BLOOD TRANSFUSION INFUSING WELL. NO HYPERSENSITIVITY REACTION NOTED.
[2019-10-18 20:30] VITALS: BP 104/41
--- NOTE | 2019-10-18 20:30 | NUR ---
RECEIVED PT FROM AM NURSE, PT AWAKE LAYING DOWN IN BED. AAOX4, ABLE TO FOLLOW COMMANDS AND MAKE NEEDS KNOWN. TELE#6 READING SR, DENIES CP/PRESSURE AT THIS TIME. PALPABLE PULSES TO ALL EXTREMETIES. NO EDEMA NOTED. LUNG SOUND DIMINISHED TO BASES, BREATHING EVEN AND UNLABORED ON 2L NC. NO SOB NOTED. PT C/O ON AND OFF NONPRODUCTIVE COUGH. NO ACUTE RESP DISTRESS NOTED. ABD SOFT AND FLAT. ACTIVE BS X4 QUAD. DENIES N/V/D. PT STATES LAST BM 4/3 AND WAS BLACK IN COLOR, PT ALSO STATES SEEING BLOON IN STOOL. NO ACTIVE BLEEDING NOTED AT THIS TIME. JORDAN CATH IN PLACE, DRAINING YELLOW URINE TO GRAVITY. BEDFAST AT THIS TIME. AMBULATORY AT BASELINE. IV TO RAC. BLOOD INFUISNG AT THIS TIME TO RAC AT 160MLHR. SITE WNL. NO S/S OF ADVERSE REACTION NOTED. BED AT LOWEST SETTING. SIDE RAILS X2 UP. DROPLET/ CONTACT PRECAUTION IN PLACE, PT R/O COVID. CALL LIGHT WITTHING REACH. WILL CONT TO MONITOR.
--- NOTE | 2019-10-18 21:30 | NUR ---
BLOOD TRANFUSION FINISHED AT THIS TIME, PT IN NO ACUTE DISTRESS NOTED. NO S/S OF ADVERSE REACTION NOTED. SAFETY PRECAUTION IN PLACE. CALL LIGHT WITHING REACH. WILL CONT TO MONITOR AND START THRID UNIT OF PRBS.
--- NOTE | 2019-10-18 23:30 | NUR ---
THIRD UNIT, STARTED AT THIS TIME, BLOOD VERIFIED WITH SECOND RN. VS STABLE AT THIS TIME. 97.8, 68, 104/41, 20, 100% ON 2L NC. BLOOD RUNNING AT 60ML/HR TO RAC. NO S/S OF ADVERSE REACTION NOTED. WILL CONT TO MONITOR.
--- NOTE | 2019-10-18 23:45 | NUR ---
PT IN NO ACUTE DISTRESS, VS 98.6, 68, 100/48, 20, 100% ON 2L NC. BLOOD INCREASED TO 150ML/HR. NO S/S OF ADVERSE REACTION NOTED. PT DENIES ANY CP/PRESSURE. SAFETY PRECAUTION REMAINED. CALL LIGHT WITHING REACH. WILL CONT TO MONITOR.
--- NOTE | 2019-10-19 00:29 | NUR ---
VERIFIED ORDER FOR BOWEL PREP WITH DR MAYO, PER DR MAYO NOT TO GIVE IT SINCE THERE IS NO ORDER FOR PROCEDURES. NO NEW ORDERS RECEIVED, WILL CONT TO MONITOR.
--- NOTE | 2019-10-19 01:30 | NUR ---
BLOOD TRANSFUSION FINISHED AT THIS TIME. NO S/S OF ACUTE REACTION NOTED. VS 98.7, 66, 101/53, 20, 100% 2L NC. PT IN NO ACUTE DISTRESS. SAFETY PRECAUTIONS IN PLACE. CALL LIGHT WITHING REACH. WILL CONT TO MONITOR.
--- NOTE | 2019-10-19 06:26 | NUR ---
PT SLEPT AT INTERVALS THROUGHOUT THE NIGHT, BREATHING EVEN AND UNLABORED ON 2L NC. O2 SAT AT 100%. NO SIGNIFICANT CHANGE DURING SHIFT. NO ACTIVE BLEEDING NOTED. PT DENIES ANY PAIN AT THIS TIME. IV TO RAC PATENT AND INTACT. SITE WNL. JORDAN CATH CARE RENDERED. PT TOLERATED WELL. ALL NEEDS ASSESSED AND ATTENDED TO. NO ACUTE DISTRESS NOTED. SAFETY PRECAUTIONS IN PLACE. DROPLET/CONTACT ISOLATIION MAINTAINED. CALL LIGHT WITHING REACH. WILL CONT TO MONITOR AND ENDORSE CARE TO AM NURSE.
[2019-10-19 06:30] VITALS: BP 97/50
[2019-10-19 06:31] LABS: CALCIUM 8.5 mg/dL (8.5-10.1); CARBON DIOXIDE 21.6 mmol/L (21-32); CHLORIDE SERUM 107 mmol/L (98-107); CREATININE SERUM 0.7 mg/dL (0.6-1.0); GFR1 > 60 mL/min; GLUCOSE SERUM 80 mg/dL (74-106); POTASSIUM SERUM 4.7 mmol/L (3.5-5.1); SODIUM SERUM 140 mmol/L (136-145)
[2019-10-19 07:35] LABS: PLATELET COUNT 266 x10^3mcL (130-400)
--- NOTE | 2019-10-19 07:42 | NUR ---
RECEIVED PATIENT FROM DIANNA CUBA. PATIENT CURRENTLY IN ISOLATION, WILL SPEAK TO PATIENT ABOUT CURRENT PLAN FOR TODAY. PATIENT O2 SAT IS 99-100% AT THIS TIME ON CONTINUOUS PULSE OX. WILL ALSO WAIT FOR MARINE ELECTRICIAN APPRENTICE SHON TO ARRIVE AND CLARIFY BLOOD TRANSFUSING, 3 U WERE GIVEN AND ENDORSED BUT SEVERAL ORDERS OF BLOOD PRESENT.
[2019-10-19 07:43] LABS: RED CELL DISTRIBUTION WIDTH 28.6 % (11.5-14.5)
[2019-10-19 08:39] VITALS: BP 93/41
--- NOTE | 2019-10-19 08:40 | NUR ---
ENTERED ISOLATION ROOM TO SPEAK WITH PATIENT. PATIENT IN BED, NO COMPLAINTS OF CHEST PAIN OR SOB. JORDAN DRAINING YELLOW URINE, ON 2 L O2. SPOKE WITH PATIENT ABOUT PLAN OF CARE TODAY AND PATIENT AGREES. BALANCE WHEEL MOTION INSPECTOR SHON HAS ARRIVED AND UPDATED TO PATIENT H/H OF 9.2 & 29. CALL LIGHT IN REACH AT THIS TIME.
[2019-10-19 11:24] LABS: BAND NEUTROPHIL 5 % (0-10); MONOCYTE 10 % (0-7); SEGMENTED NEUTROPHILS 64 % (37-75); rbc morphology (normal/abnorm) ABNORMAL (NORMAL)
[2019-10-19 11:25] LABS: PLATELET MORPHOLOGY PLATELETS NORMAL; ovalocyte/elliptocyte 1+; tear drop cell (dacryocyte) 1+
--- NOTE | 2019-10-19 11:47 | NUR ---
ORDERS PLACED BY DR HOPKINS FOR EGD COLONOSCOPY. INFORMED CHARGE NURSE JOSE. PATIENT STATES "DR CAME IN" AND TOLD HER ABOUT PROCEDURE TOMORROW. SIGNATURES OBTAINED AT THIS TIME. INFORMED PATIENT SHE WILL NEED TO HAVE LAXATIVE PREPARATION FOR COLONOSCOPY TOMORROW AND PATIENT IS AWARE AND AGREES. CALL LIGHT IN REACH AT THIS TIME.
[2019-10-19 12:58] VITALS: BP 103/53
--- NOTE | 2019-10-19 15:01 | NUR ---
INSTRUCTED PATIENT ON NEED TO CONSUME SUPREP FOR COLONOSCOPY IN AM. PATIENT HAD MULTIPLE QUESTIONS ABOUT ADMINISTRATION, INSTRUCTED HER TO DRINK SUPREP AND TO CALL FOR HELP TO USE THE COMMODE. PATIENT IS [place] AND WILL REMIND PATIENT TO DRINK ENTIRE SUPREP. PATIENT ALSO REQUESTED TO THIS NURSE TO NOT GIVE ANY INFORMATION OR PLAN OF CARE WITH SISTER OR "IF THEY CALL". AT THIS TIME DIALED INTO NURSES STATION BUT UNABLE TO REACH NURSE AT THE TIME D/T BEING IN ISOLATION ROOM.
[2019-10-19 17:34] VITALS: BP 131/58
--- NOTE | 2019-10-19 17:35 | NUR ---
PATIENT COMPLETED FIRST BOTTLE OF BOWEL PREP AND HAD X3 BMS. DARK BLACK STOOL OBSERVED. PATIENT ALSO COMPLAINING ABOUT JORDAN CATHETER. STATING THAT "IT GUEVARA WHEN I PEE". EXPLAINED TO PATIENT THAT JORDAN IS IN BLADDER. YELLOW URINE OBSERVED, DRAINING. TUBING CHECKED AND JORDAN IRRIGATED WITH NORMAL SALINE, NO REDNESS OR SWELLING IN GENITAL REGION. JORDAN REMOVED AT THIS TIME AND TOLERATED. NO SIGNS OF BLEEDING. PATIENT ABLE TO SLOWLY STAND UP AND USE BEDSIDE COMMODE AT THIS TIME.
--- NOTE | 2019-10-19 18:46 | NUR ---
PATIENT EXPERIENCING EFFECTS OF DULCOLAX AND SUPREP. 5 MORE BOWEL MOVEMENTS AT THIS TIME ON BEDSIDE COMMODE. INITIAL BM WAS DARK BLACK, THICK. CURRENTLY LIQUID, GREEN AT THIS TIME. WILL ENDORSE TO ONCOMING NURSE. CALL LIGHT IN REACH, PATIENT ON BEDSIDE COMMODE.
--- NOTE | 2019-10-19 19:30 | NUR ---
RECEIVED PT FROM DAY SHIFT RN. PT AAOX4, DENIES GREENFIELD/DIZZINESS. BREATHING EVEN AND UNLABORED ON RA WITH NO SOB NOTED, 95% 02SAT WITH NO SOB NOTED. TELE #6 SR, DENIES CHEST PAIN/PRESSURE. IV RAC PATENT, INFUSING WELL. PATIENT USED BSC, WITH BROWN COLOR STOOL. ABD SOFT/ROUND, ACTIVE BOWEL SOUNDS. DENIES ABD PAIN/N/V. NO ACUTE DISTRESS NOTED. CALL BUTTON WITHIN REACH. SAFETY PRECAUTIONS IN PLACE. DROPLET/CONTACT PRECAUTIONS IN PLACE. WILL CONTINUE TO MONITOR.
[2019-10-19 19:45] VITALS: BP 115/59
--- NOTE | 2019-10-19 21:38 | NUR ---
PATIENT REQUESTING FOR TYLENOL FOR MILD PAIN UPON URINATION, ENCOURAGE TO CLEAN HERLSELF WITH A CLEAN WIPE (FRONT-BACK), DRINK FLUIDS, MEDICATED PER EMAR. WILL MONITOR.
--- NOTE | 2019-10-20 01:30 | NUR ---
PLACED PATIENT ON NC 2L/MIN, PATIENT REPORTED MILD SOB. PATIENT 02SAT 99% ON 2L/MIN. NO RESP DISTRESS. CHANGED AND HELPED REPOSITIONED PATIENT AT THIS TIME. CALL BUTTON WITHIN REACH. SAFETY PRECAUTIONS IN PLACE. WILL MONITOR.
--- NOTE | 2019-10-20 02:34 | NUR ---
PATIENT RESTING. BREATHING EVEN AND UNLABORED. NC 2L/MIN NO SOB NOTED. CALL BUTTON WITHIN REACH. SAFETY PRECAUTIONS IN PLACE. WILL CONTINUE TO MONITOR.
[2019-10-20 06:24] VITALS: BP 100/58
[2019-10-20 06:50] LABS: CALCIUM 8.9 mg/dL (8.5-10.1); CARBON DIOXIDE 23.2 mmol/L (21-32); CHLORIDE SERUM 112 mmol/L (98-107); CREATININE SERUM 0.7 mg/dL (0.6-1.0); GFR1 > 60 mL/min; GLUCOSE SERUM 79 mg/dL (74-106); POTASSIUM SERUM 4.2 mmol/L (3.5-5.1); SODIUM SERUM 146 mmol/L (136-145)
--- NOTE | 2019-10-20 06:56 | NUR ---
PATIENT SLEPT ON AND OFF THROUGHOUT THE NIGHT WITH NO ACUTE DISTRESS. BREATHING EVEN AND UNLABORED ON NC 2L/MIN NO SOB NOTED, 02SAT 100%. NO RESP DISTRESS. IV RAC PATENT, INFUSING WELL. PATIENT USES BSC/INCONT AT TIMES. WATERY STOOLS DARK GREEN COLOR LAST NIGHT, THIS AM EPISODE OF LIGHT YELLOW COLOR WITH TINGE OF BLACK STOOL. DENIES ANY PAIN. MEDICATED PER EMAR. CALL BUTTON WITHIN REACH. SAFETY PRECAUTIONS IN PLACE. WILL CONTINUE TO MONITOR AND ENDORSE CARE TO DAY SHIFT RN.
[2019-10-20 07:25] LABS: PLATELET COUNT 282 x10^3mcL (130-400)
--- NOTE | 2019-10-20 07:30 | NUR ---
RECEIVED REPORT FROM NIGHT NURSE Pt LYING IN BED A&O X4 ON TELE MONITOR 6 NSR DENIES ANY CHEST PAIN OR PRESSURE. LUNGS CLEAR/DIMINSHED BILAT ON 2L NC 02 97% CONTINUOUS. ABD SOFT/FLAT Pt REPORTS CLEAR BM. NPO SINCE MIDNIGHT FOR POSSIBLE EGD. IV ON RAC PATENT AND INTACT. ALL NEEDS ADDRESSED AT THIS TIME. BED IN LOWEST POSITION CALL LIGHT WITHIN REACH. WILL CONTINUE TO MONITOR.
--- NOTE | 2019-10-20 07:33 | NUR ---
NO ACUTE DISTRESS NOTED. ENDORSED CARE TO DAY SHIFT RN, ALL QUESTIONS ADDRESSED.
[2019-10-20 07:35] LABS: RED CELL DISTRIBUTION WIDTH 29.4 % (11.5-14.5)
[2019-10-20 07:55] VITALS: BP 95/51
--- NOTE | 2019-10-20 09:06 | NUR ---
ADMINISTERED ANTIBIOTICS PER MAR IVPB Pt TOLERATED WELL NO ADVERSE REACTIONS NOTED. GAVE REPORT TO O.R. FOR COLONOSCOPY. CHECKLIST COMPLETE. ALL NEEDS ATTENDED TO. BED IN LOWEST POSITION CALL LIGHT WITHIN REACH. WILL CONTINUE TO MONITOR.
--- NOTE | 2019-10-20 09:42 | NUR ---
DOING COLONOSCOPY AT BEDSIDE
[2019-10-20 10:22] LABS: BAND NEUTROPHIL 6 % (0-10); BASOPHIL 0 % (0-2); MONOCYTE 10 % (0-7); SEGMENTED NEUTROPHILS 67 % (37-75)
[2019-10-20 10:23] LABS: rbc morphology (normal/abnorm) ABNORMAL (NORMAL); tear drop cell (dacryocyte) 1+
[2019-10-20 10:24] LABS: PLATELET MORPHOLOGY PLATELETS NORMAL; ovalocyte/elliptocyte 1+
--- NOTE | 2019-10-20 10:35 | NUR ---
COVID-19 RESULTS CAME BACK NEGATIVE SHON OLIVARES AWARE Pt NO LONGER ISOLATION
[2019-10-20 12:34] VITALS: BP 106/57
--- NOTE | 2019-10-20 14:44 | NUR ---
Pt C/O ABD PAIN 04/24 ADMINISTERED TYLENOL PER SEP Pt TOLERATED WELL. UPDATED DAUGHTER ON CARE STATUS ALL QUESTIONS AND CONCERNS ADDRESSED. PROVIDED WARM BLANKET. SAFETY PRECAUTIONS IN PLACE. WILL CONTINUE TO MONITOR.
[2019-10-20 16:48] VITALS: BP 108/53
--- NOTE | 2019-10-20 17:39 | NUR ---
Pt SITTING UP AT THE EDGE OF BED EATING DIET TOLERATING CLEAR LIQUID DIET. DENIES ANY PAIN AT THIS TIME. ALL NEEDS ATTENDED TO.SAFETY PRECAUTIONS IN PLACE. WILL CONTINUE TO MONITOR.
--- NOTE | 2019-10-20 18:35 | NUR ---
Pt SITTING UP IN BED WATCHING TV DENIES ANY PAIN AT THIS TIME. WEANED OFF 02 ON RA 100% TOLERATING WELL CHEST RISE EQUAL AND UNLABORED.IV ON RAC PATENT AND INTACT NO REDNESS OR EDEMA. ON TELE MONITOR 6 NSR AND CONTINUOUS PULSE OX. ALL QUESTIONS AND CONCERNS ADDRESSED AT THIS TIME. BED IN LOWEST POSITION CALL LIGHT WITHIN REACH. WILL ENDORSE CARE TO NIGHT NURSE.
--- NOTE | 2019-10-20 19:55 | NUR ---
RECEIVED PATIENT AWAKE IN BED. SPEAKS CITIZEN OF [place] AND [place] LANGUAGE. UNDERSTANDS LITTLE [place]. RESPIRATION EVEN AND UNLABORED. NO NOTED SOB. IVF INFUSING WELL. IV LINE INTACT AND PATENT. NO C/O PAIN OR DISCOMFORT. BED PLACED IN THE LOWEST POSITION. CALL LIGHT PLACED WITHIN EASY REACH.
[2019-10-20 20:58] VITALS: BP 109/60
--- NOTE | 2019-10-21 00:29 | NUR ---
PATIENT SLEEPING COMFORTABLY AT THIS TIME. O2 CONT AT 2L VIA N/C. NO SOB. IVF INFUSING WELL. IV LINE ON THE RAC INTACT AND PATENT. INCONTINENT OF BLADDER. NO C/O PAIN OR DISCOMFORT. CALL LIGHT WITHIN EASY REACH.
[2019-10-21 05:56] VITALS: BP 120/57
--- NOTE | 2019-10-21 06:40 | NUR ---
PATIENT AWAKE, ALERT. CONT ON 02 AT 2L VIA N/C. NO NOTED SOB. NO COUGHING NOTED. IVF INFUSING WELL. IV LINE INTACT AND PATENT. NO C/O PAIN OR DISCOMFORT. BLOOD SUGAR 78. ORANGE JUICE GIVEN. NOT IN ANY SIGN OF DISTRESS. CALL LIGHT WITHIN EASY REACH. WILL CONTINUE TO MONITOR.
[2019-10-21 06:45] LABS: CALCIUM 7.8 mg/dL (8.5-10.1); CARBON DIOXIDE 20.1 mmol/L (21-32); CHLORIDE SERUM 113 mmol/L (98-107); CREATININE SERUM 0.5 mg/dL (0.6-1.0); GFR1 > 60 mL/min; GLUCOSE SERUM 76 mg/dL (74-106); MAGNESIUM 1.8 mg/dL (1.8-2.4); POTASSIUM SERUM 3.7 mmol/L (3.5-5.1); SODIUM SERUM 143 mmol/L (136-145)
[2019-10-21 07:04] LABS: PLATELET COUNT 243 x10^3mcL (130-400)
[2019-10-21 07:19] LABS: RED CELL DISTRIBUTION WIDTH 29.7 % (11.5-14.5)
--- NOTE | 2019-10-21 07:20 | NUR ---
RECEIVED PT FROM TEAM OTR TRUCK DRIVER. PT AWAKE, ALERT. A/OX4. PT ON ROOM AIR WITH NO RESP DISTRESS NOTED. PT ON TELE 6, DENIES CHEST PAIN. IV ACCESS RAC, CDI INFUSING NS AT 100ML/HR. PERIPHERAL PULSES PALPABLE, NO EDEMA NOTED. ACTIVE BS NOTED. PT DENIES ISSUES WITH ELIMINATION. PT NOTED TO HAVE OCCASIONAL EPISODES OF URINARY INCONTINENCE. PT NOTED TO HAVE GENERALIZED WEAKNESS, AMBULATORY. PT USES BSC. PT DENIES PAIN AT THIS TIME. SAFETY MEASURES IN PLACE, BED LOW AND LOCKED. CALL LIGHT WITHIN REACH.
[2019-10-21 08:19] VITALS: BP 115/57
--- NOTE | 2019-10-21 09:03 | NUR ---
PT IV LEAKING. ATTEMPTED TO PLACE NEW IV THREE TIMES. PER DIANA OK TO HOLD PROTONIX/ROCEPHIN AT THIS TIME. PT IS TO BE DISCHARGED. PT REFUSES COLACE, PT REPORTS LOOSE/FREQUENT STOOL OVERNIGHT. ALL OTHER MEDS GIVEN ORDERED.
[2019-10-21 09:20] LABS: BAND NEUTROPHIL 0 % (0-10); BASOPHIL 0 % (0-2); MONOCYTE 10 % (0-7); SEGMENTED NEUTROPHILS 70 % (37-75)
[2019-10-21 09:22] LABS: PLATELET MORPHOLOGY PLATELETS NORMAL; ovalocyte/elliptocyte 1+
[2019-10-21 09:23] LABS: rbc morphology (normal/abnorm) ABNORMAL (NORMAL); schistocyte (helmet cell) 1+
--- NOTE | 2019-10-21 10:40 | NUR ---
PT REFUSING TO GO TO SNF. DIANA EVENT DECORATOR AWARE.
[2019-10-21] MEDS ORDERED: METAMUCIL FIBE3.4 GM PO (11:03)
[2019-10-21] MEDS ORDERED: PROTONIX20 MG PO (11:04)
--- NOTE | 2019-10-21 12:28 | NUR ---
PER CASE MANAGEMENT, PT REFUSES SNF AND HOME HEALTH. PT OK TO BE DISCHARGED.
[2019-10-21 12:30] VITALS: BP 115/57
--- NOTE | 2019-10-21 13:23 | NUR ---
SPOKE WITH DAUGHTER RAIN REGARDING PT DISCHARGE. PT DAUGHTER WOULD PREFER PT TO GO TO SNF TO GET STRONGER ORIGINALLY PLANNED. PT SPOKE WITH DAUGHTER ON PHONE, AGREEABLE AT THIS TIME TO GO TO SNF.
--- NOTE | 2019-10-21 15:11 | NUR ---
PT RESTING WITH NO DISCOMFORT NOTED. AWAITING PLACEMENT FOR SNF.
--- NOTE | 2019-10-21 16:18 | NUR ---
CALLED [facility], GAVE REPORT TO LILI. PT ESTIMATED BEEF CATTLE GRAZIER TIME 1800 FOR DISCHARGE.
--- NOTE | 2019-10-21 16:44 | NUR ---
DISCHARGE PAPERWORK/ACKNOWLEDGMENT OF TRANSFER SIGNED AT THIS TIME. PT LOSS PREVENTION AGENT TIME 1800.
[2019-10-21 17:05] VITALS: BP 113/56
--- NOTE | 2019-10-21 17:45 | NUR ---
TRANSPORTATION HERE TO PATROL AGENT PATIENT. NO ACUTE DISTRESS NOTED AT THIS TIME. PT TAKEN BY YARA TO [facility]. SAFETY MAINTAINED.
== END 2019-10-21 17:56 | disposition home health service (06) | DRG 378 ==
LOC: ED 08:19 → DU 11:29
PROVIDERS: Emergency Medicine; Internal Medicine; ADMIT Internal Medicine
PROC: 30233N1 Transfusion of Nonautologous Red Blood Cells into Peripheral Vein, Percutaneous Approach (ICD-10-PCS; 2019-10-18)
PROC: 0W3P8ZZ Control Bleeding in Gastrointestinal Tract, Via Natural or Artificial Opening Endoscopic (ICD-10-PCS; principal; 2019-10-20 11:00)
PROC: 0DJD8ZZ Inspection of Lower Intestinal Tract, Via Natural or Artificial Opening Endoscopic (ICD-10-PCS; 2019-10-20 11:00)
DX: K31.811 Angiodysplasia of stomach and duodenum with bleeding (principal); E44.0 Moderate protein-calorie malnutrition; D50.0 Iron deficiency anemia secondary to blood loss (chronic); K57.30 Diverticulosis of large intestine without perforation or abscess without bleeding; I11.9 Hypertensive heart disease without heart failure; I25.10 Atherosclerotic heart disease of native coronary artery without angina pectoris; I25.5 Ischemic cardiomyopathy; R73.03 Prediabetes; E78.5 Hyperlipidemia, unspecified; I25.2 Old myocardial infarction; Z79.82 Long term (current) use of aspirin; Z79.02 Long term (current) use of antithrombotics/antiplatelets; Z68.29 Body mass index [BMI] 29.0-29.9, adult; Z95.1 Presence of aortocoronary bypass graft; Z95.5 Presence of coronary angioplasty implant and graft; Z90.49 Acquired absence of other specified parts of digestive tract
CPT/HCPCS: 43235; 45378; 82962; 84439; 97116-GP; 97530-GP; C9113; G0378; J0696; J1200; J1610; J2250; J2310; J3010; J3490; J3535; J7030; J7050; P9016; Q0092; U0002

== ENCOUNTER 2020-01-25 11:53 | Inpatient (IN) | payer OTHER, MEDICAID, SELFPAY ==
[~2020-01-25] VITALS: Ht 121.9 cm; Wt 46.0 kg
[~2020-01-25 11:53] MED LIST changes: +CIPRO500 MG PO; +METAMUCIL FIBE3.4 GM PO; +PROTONIX20 MG PO
[2020-01-25 12:01] VITALS: Ht 121.9 cm; Wt 46.0 kg
[2020-01-25 13:25] LABS: PLATELET COUNT 189 x10^3mcL (130-400)
[2020-01-25 13:26] LABS: microscopic required? YES; urine erythrocyte 2+ (NEGATIVE)
--- NOTE | 2020-01-25 13:28 | NUR ---
Labs and UA sent. NSR VSS on mammographer. C/o low abd/pelvic pain in her "kidneys" for a week with generalized weakness. IV attempt x2 unsuccessful. A&Ox4. Respirations unlabored. Skin warm and dry.
[2020-01-25 13:32] LABS: RED CELL DISTRIBUTION WIDTH 14.9 % (11.5-14.5)
--- NOTE | 2020-01-25 13:32 | NUR ---
Tomas [phone]
[2020-01-25 13:54] LABS: CALCIUM 8.3 mg/dL (8.5-10.1); CARBON DIOXIDE 21.6 mmol/L (21-32); POTASSIUM SERUM 3.3 mmol/L (3.5-5.1)
[2020-01-25 14:05] LABS: BAND NEUTROPHIL 9 % (0-10); MONOCYTE 6 % (0-7); SEGMENTED NEUTROPHILS 80 % (37-75)
[2020-01-25 14:06] LABS: PLATELET MORPHOLOGY LARGE PLATELET SEEN; rbc morphology (normal/abnorm) NORMAL (NORMAL)
[2020-01-25 14:23] LABS: BILIRUBIN TOTAL 1.4 mg/dL (0.20-1.00); C REACTIVE PROTEIN 8.5 mg/dL (<=0.9); TOTAL PROTEIN, SERUM 7.6 g/dL (6.4-8.2)
[2020-01-25 14:24] LABS: ALBUMIN 3.3 g/dL (3.4-5.0)
--- NOTE | 2020-01-25 14:24 | NUR ---
RN AT BEDSIDE TO PLACE IV. CRITICAL VALUE TROPONIN 0.397 COMMUNICATD TO MD, NO FURTHER ORDERS, NO CHANGES TO PT CONDITION
--- NOTE | 2020-01-25 14:34 | NUR ---
PT IS CONFUSED TO DATE, PER DAUGHTER ANASTASIA THE PATIENT HAS BEEN CONFUSED FOR ONE WEEK, AND HAS ALSO FELT WEAK ALL OVER FOR ONE WEEK WITH BLURRY VISION IN BOTH EYES. ALSO STATES THE PATIENT VOMITED TODAY, HAD A HEADACHE, AND ABD PAIN. ALSO HAD CP SINCE YESTERDAY. REPDEAT FLU SWAB SENT. HX CARDIAC STENT 1-2 YEARS AGO AT [address] PT SPEECH CLEAR, NO FOCAL DEFECITS NOTED.
--- NOTE | 2020-01-25 16:01 | NUR ---
PT LAYING SIDE CLUTCHING EMESIS BASIN. MED PO PER ORDER. ASPIRIN NOT GIVEN PENDING CONTROL OF [place]. ROCEPHIN BEGAN ORDERED VIA CONTROLLER.
--- NOTE | 2020-01-25 16:05 | NUR ---
PT MINIMALLY RESPONSIVE, WOULD ONLY SAY HER FIRST NAME. ROOM AIR 02 SAT=93%. CALLED MD TO COME RE-EVALUATE PT. PT SPOKE A LITTLE MORE, SAID SHE "CAN'T BREATHE" & IS "DIZZY" & HER ARM "HURTS BECAUSE OF THE IV." STILL VERY DROWSY. MD CALLED FOR REPEAT EKG. PT PULLED UP IN BED. PT HOT TO TOUCH, HSEMSRMX=819.8, RECTAL BWWQ=804.6. BLANKETS REMOVED. WILL NOTIFY MD & MEDICATE W/ RECTAL TYLENOL.
--- NOTE | 2020-01-25 16:42 | NUR ---
PHLEBOTOMY AT BEDSIDE. AWAKE AND ALERT. RESTING QUIETLY IN BED. VSS ST RATE 103 ON MONITOR. NAD. WCTM
--- NOTE | 2020-01-25 19:20 | NUR ---
NSR VSS ON MONITOR. AWAKE ALERT AND ORIENTED. NAD. RESTING QUIETLY IN BED. IV SITE CLEAR. LINENS CLEAN AND DRY. REPORT TO ONCOMING RN.
--- NOTE | 2020-01-25 19:33 | NUR ---
RECEIVED REPORT FROM DIANNA KUMARI TO ASSUME PT CARE. PT RESTING IN BED IN A POSITION OF COMFORT. PT REPORTS, "I FEEL HOT". PT TEMP RECHECKED, 98.8 AT THIS TIME. PT REQUESTED I REMOVE BLANKETS AT THIS TIME.
[2020-01-25 21:12] LABS: PHOSPHOROUS 3.8 mg/dL (2.5-4.9)
--- NOTE | 2020-01-25 22:11 | NUR ---
PT IS A&OX3. PT CAN NOT RECALL WHAT YEAR IT IS AT THIS TIME. PT IS TALKING IN COMPLETE AND CLEAR 6-8 WORD SENTENCES. BREATHING E/U, REMAINS ON FULL CARDIAC MONTIOR AND 2L O2 VIA NC
--- NOTE | 2020-01-25 22:18 | NUR ---
SPOKE TO DR FRANCO TO UPDATE HER ON PTS CURRENT BP. PER DR FRANCO INCREASE NS 20ML/HR EMAR ORDER TO WIDE OPEN, 1000ML/HR AND CALL BACK WITH UPDATE. PER DR FRANCO, WILL UPDATE EMAR AT THIS TIME.
--- NOTE | 2020-01-25 22:23 | NUR ---
PT PLACED IN [place] AT THIS TIME FOR LOW BP. PT 72/40 AT THIS TIME.
--- NOTE | 2020-01-25 22:24 | NUR ---
PT ORAL TEMP RECHECKED AT THIS TIME, 98.1
--- NOTE | 2020-01-25 22:38 | NUR ---
PT IS EASILY AROUSABLE AT THIS TIME. PT REPORTS "I USUALLY HAVE LOW BLOOD PRESSURE" WHEN PT IS TOLD HER BP IS LOW. PT REMAINS ON THE FULL SCRUBBER SYSTEM ATTENDANT AND 2L O2 VIA NC. PT BREATHING E/U. PT HAS FLUIDS RUNNING PER EMAR ORDER FROM DR FARNCO.
--- NOTE | 2020-01-25 22:48 | NUR ---
PER DR FRANCO, INCREASE NS TO 200ML/HR AT THIS TIME
--- NOTE | 2020-01-25 22:58 | NUR ---
DR FRANCO UPDATED ON PTS CONDITION. PER DR FRANCO, HAVE 1 NS LITER WIDE OPEN BOLUS AND SHE WILL ORDER A STAT EKG
--- NOTE | 2020-01-25 23:04 | NUR ---
PER DR FRANCO, SHE WILL COME DOWN TO ASSESS PT AT THIS TIME.
--- NOTE | 2020-01-25 23:06 | NUR ---
FREDERIC EMT AT BEDSIDE FOR EKG.
--- NOTE | 2020-01-25 23:06 | NUR ---
CALLED RT TO COMPLETE ADMITTING DR ORDER FOR EKG, PER RT, ER COMPLETES STAT ORDERS FOR EKG
--- NOTE | 2020-01-25 23:21 | NUR ---
DR FRANCO AT BEDSIDE
--- NOTE | 2020-01-25 23:28 | NUR ---
DR FRANCO AT [facility] WITH RESIDENT AND MYSELF. PER DR FRANCO, OKAY TO GIVE PT A SANDWHICH. PT REQUESTING FOOD AND BLANKET AT THIS TIME. PT IS ANSWERING QUESTIONS IN CLEAR AND COMPLETE SENTENCES, RESPONDS TO VERBAL AND TACTILE STIMULI.
--- NOTE | 2020-01-25 23:40 | NUR ---
PT SITTING UP IN BED EATING A SANDWHICH AT THIS TIME. PT ABLE TO CHEW AND SWALLOW, NO S/S OF DISTRESS NOTED. PT REMAINS ON FULL BOILER WELDER AND 2L O2 VIA NC
--- NOTE | 2020-01-25 23:50 | NUR ---
CALLED DR FRANCO TO PROVIDE UPDATE ON PT. PER DR FRANCO, CONTINUE TO MONITOR AND PROVIDE HER WITH UPDATES. WILL AWAIT FOR FURTHER ORDERS
[2020-01-26] VITALS (8 sets, daily range): BP systolic 79–128; BP diastolic 34–63
--- NOTE | 2020-01-26 00:14 | NUR ---
PT IS REQUESTING FOR A WARM BLANKET AT THIS TIME.
--- NOTE | 2020-01-26 00:46 | NUR ---
PT SLEEPING ON GURNEY IN POSITION OF COMFORT. VISIBLE CHEST RISE AND FALL. PT IN [place] POSITION. NO S/S OF DISTRESS. RESP E/U. WILL CONTINUE TO MONITOR.
--- NOTE | 2020-01-26 00:52 | NUR ---
PT REPOSITIONED IN THE BED W/THE HELP OF EMT KAYLIN. PT WAS ABLE TO BEND LEGS AND ASSIST IN MOVING UP. PT AWAKE. PROVIDED PT WITH SALTINE CRACKERS, PER DR. FRANCO. NO S/S OF DISTERSS. RESP E/U. WILL CONTINUE TO MONITOR.
--- NOTE | 2020-01-26 01:39 | NUR ---
CALLED REPORT TO DIANNA LEMUS TO ASSUME PT CARE. PT GOING TO ICU-6
--- NOTE | 2020-01-26 02:00 | NUR ---
RECEIVED PT FROM ED. PT ARRIVED VIA GUERNEY ACCOMPANIED BY RN. PT AAOX1 TO PERSON. PT ON 2L OXYGEN NASAL CANNULA. PT CONNECTED TO MACHINE STAPLER. HEART RHYTHM IS NSR. PULSES MODERATE BUE, WEAK BLE. CAP REFILL < 3 SEC. PT HYPOTENSIVE WITH BP OF 79/34(46). WILL CONTINUE TO MONITOR.
--- NOTE | 2020-01-26 02:20 | NUR ---
PT TRANSFERED TO ICU-6 VIA [facility] BY MYSELF AND BASSEM, EMT. PT REMAINED ON FULL CARPENTER FOREMAN AND 2L O2 VIA NC DURING TRANSPORT. PT IS EASILY AROUSABLE, AND A&OX3 DURING TRANSPORT. PT RESPONDS TO VERBAL AND TACTILE STIMULI, NO S/S OF DISTRESS NOTED. PT TRANSFERED FROM [facility] TO ICU-6 WITHOUT INJURY. ALLAN RN AT BEDSIDE TO ASSUME PT CARE.
--- NOTE | 2020-01-26 03:00 | NUR ---
LEVOPHED INITIATED @2MCG/MIN. BP 79/34(46). WILL CONTINUE TO MONITOR.
--- NOTE | 2020-01-26 03:20 | NUR ---
DR VILLARREAL AT BEDSIDE WITH DR FRANKS AND ULTRASOUND FOR CENTRAL LINE PLACEMENT. TIME OUT TAKEN WITH ALL PARTIES IN AGREEMENT.
--- NOTE | 2020-01-26 03:21 | NUR ---
DR. EDEN & DR. GUNTER AT BEDSIDE FOR CENTRAL LINE INSERTION.
--- NOTE | 2020-01-26 03:35 | NUR ---
DR. GUNTER & DR. OWENS AT BEDSIDE FOR CENTRAL LINE PLACEMENT.
--- NOTE | 2020-01-26 05:26 | NUR ---
PT O2 SATURATION DROPPED TO 82%. INCREASED O2 TO 4L. WILL CONTINUE TO MONITOR.
--- NOTE | 2020-01-26 05:42 | NUR ---
PATIENT'S BP 127/64, MAP 85. LEVOPHED TITRATED FROM 6 MCG/MIN TO 4 MCG/MIN.
--- NOTE | 2020-01-26 07:00 | NUR ---
REPORTED RECEVIED FROM ALLAN BUSTAMANTE. ALL QUESTIONS AND CONCERNS ADDRESSED.
--- NOTE | 2020-01-26 07:15 | NUR ---
PATIENT'S BP 86/45, MAP 54. LEVOPHED TITRATED TO 8 MCG/MIN.
--- NOTE | 2020-01-26 07:16 | NUR ---
PATIENT ALERT AND ORIENTED X 3. ABLE TO MAKE NEEDS KNOWN. PUPILS EQUAL AND REACTIVE.. RIJ IN PLACE INFUSING LEVOPHED AT 8 MCG/MIN AND NS AT 200 ML/HR. CHEST EXPANSION SYMMETRICAL. IV TO LEFT HAND REMOVED WITH CATH INTACT. PATIENT PLACED ON BEDPAN FREQUENTLY C/O THE URGE TO URINATE. PATIENT DENIES ANY PAIN OR DISCOMFORT. WILL COMPLETE FULL ASSESSMENT.
[2020-01-26 07:29] LABS: BASOPHIL % 0.3 % (0-2); PLATELET COUNT 138 x10^3mcL (130-400)
[2020-01-26 07:51] LABS: RED CELL DISTRIBUTION WIDTH 15.8 % (11.5-14.5)
[2020-01-26 07:52] LABS: CALCIUM 7.5 mg/dL (8.5-10.1); CARBON DIOXIDE 19.2 mmol/L (21-32); CREATININE SERUM 1.4 mg/dL (0.6-1.0); PHOSPHOROUS 3.8 mg/dL (2.5-4.9)
--- NOTE | 2020-01-26 08:00 | NUR ---
ECHO PENDING. [place] [facility] [place]IENT RECORDS FOR RESULTS.
[2020-01-26 08:01] LABS: POTASSIUM SERUM 2.9 mmol/L (3.5-5.1)
--- NOTE | 2020-01-26 08:46 | NUR ---
PATIENT'S BP 87/49, MAP 56. LEVOPHED TITRATED TO 10 MCG/MIN.
--- NOTE | 2020-01-26 08:52 | NUR ---
SSPOKE WITH PATIENT REGARDING INSERTION OF JORDAN CATHETER. PATIENT REFUSING AT THIS TIME. EDUCATION PROVIDED AND PATIENT CONTINUED TO REFUSE.
--- NOTE | 2020-01-26 09:03 | NUR ---
DR CARR AT BEDSIDE TO ASSESS PATIENT. UPDATES PROVIDED BY NURSING.
--- NOTE | 2020-01-26 09:03 | NUR ---
DR CARR AT BEDSIDE TO ASSESS PATIENT. UPDATES PROVIDED BY NURSING. WEANING TRIALS TODAY. IF PATIENT BECOMES RESTLESS, ADD PRECEDEX TO TITRATE OFF VERSED PER CONVERSATION WITH DR CARR. ROSELINE DE LA PAZ ON UNIT AND MADE AWARE.
--- NOTE | 2020-01-26 09:07 | NUR ---
PATIENT C/O HEADACHE. ADMINISTERED TYLENOL 650 MG PO FOR HEADACHE.
--- NOTE | 2020-01-26 10:04 | NUR ---
PATIENT'S BP 84/41, MAP 53. LEVOPHED TITRATED TO 13 MCG/MIN. WILL CONTINUE TO MONITOR.
--- NOTE | 2020-01-26 10:38 | NUR ---
DR NUÑEZ AT BEDSIDE TO ASSESS PATIENT. UPDATES PROVIDED BY NURSING. DR NUÑEZ EDUCATED PATIENT THE NEED FOR JORDAN CATHETER INSERTION. QUESTIIONS AND CONCERNS ADDRESSED. PATIENT AGREED AT THIS TIME.
--- NOTE | 2020-01-26 10:39 | NUR ---
PATIENT'S BP 83/54, MAP 67. LEVOPHED TITRATED TO 15 MCG/MIN.
--- NOTE | 2020-01-26 11:00 | NUR ---
SPOKE WITH PATIENT REGARDING JORDAN CATHETER INSERTION. PATIENT AGREED FOR INITIATION OF JORDAN. JORDAN KIT AT BEDSIDE. #16 ROMANIAN INSERTED WITH APPROXIMATELY 300 ML OF KATHY COLORED URINE RETURNED IN DRAINAGE BAG. PATIENT TOLERATED WITH NO S/S OF DISTRESS. WILL CONTINUE TO MONITOR.
--- NOTE | 2020-01-26 14:55 | NUR ---
DR SERVIN AT BEDSIDE TO ASSESS PATIENT. UPDATES PROVIDED BY NURSING. NEW ORDERS RECEIVED FOR DVT PROPHALAXIS.
--- NOTE | 2020-01-26 15:27 | NUR ---
USING ASEPTIC TECHNIQUE, RIJ CENTRAL LINE DRESSING CHANGED. PATIENT TOLERATED WITH NO S/S OF DISTRESS OR DISCOMFORT.
--- NOTE | 2020-01-26 15:59 | NUR ---
PATIENT CONTINUES ON SEDATION VACATION. HR FROM 50'S TO 70'S. RUDY REMAINS AT 20 MCG/MIN. BP 102/55, MAP 70. WILL CONTINUE TO MONITOR.
--- NOTE | 2020-01-26 19:15 | NUR ---
RECEIVED REPORT FROM DIANNA SINHA. WILL RESUME CARE.
--- NOTE | 2020-01-26 19:20 | NUR ---
RECEIVED PT. PT AAOX3 TO PERSON, PLACE, SITUATION. PT NOT ORIENTED TO TIME. PT CONNECTED TO CHIEF SERVICE OBSERVER, HEART RHYTHM NSR. PT ON 2L NASAL CANNULA. PT BREATHING E/U. CRACKLES AUSCULTATED BUL, LUNG SOUNDS DIMINISHED BLL. PT BREATHING E/U. NS INFUSING @200 ML/H & LEVOPHED INFUSING @8 MCG/MIN. BP 104/58(73). PT COMPLAINS OF LRQ PAIN AT THIS TIME. WILL CONTINUE TO MONITOR.
--- NOTE | 2020-01-26 19:20 | NUR ---
RECEIVED PT. PT AAOX3 TO PERSON, PLACE, SITUATION. PT NOT ORIENTED TO TIME. PT CONNECTED TO HVAC SALES REPRESENTATIVE, HEART RHYTHM NSR. PT ON 2L NASAL CANNULA. PT BREATHING E/U. CRACKLES AUSCULTATED BUL, LUNG SOUNDS DIMINISHED BLL. PT BREATHING E/U. NS INFUSING @200 ML/H & LEVOPHED INFUSING @8 MCG/MIN. BP 104/58(73). PT COMPLAINS OF LLQ PAIN AT THIS TIME. WILL CONTINUE TO MONITOR.
--- NOTE | 2020-01-26 20:37 | NUR ---
PT COMPLAINED OF MODERATE LLQ PAIN. ADMINISTERED 7.5/325 NORCO. WILL CONTINUE TO MONITOR.
--- NOTE | 2020-01-26 23:15 | NUR ---
PT EXHIBITING ANXIETY, AGITATION. CALLED DR. SWANSON. ORDERED 50MG ATARAX. WILL CARRY OUT ORDERS AND CONTINUE TO MONITOR.
--- NOTE | 2020-01-27 01:45 | NUR ---
DR. WU TELEPHONED. PT UPDATES PROVIDED. DR. Cindy JETT. START MERREM & VANCOMYCIN. ORDERS VERIFIED AND WILL CARRY OUT.
[2020-01-27 03:56] VITALS: BP 97/51
[2020-01-27 06:38] LABS: CARBON DIOXIDE 18.8 mmol/L (21-32); CREATININE SERUM 1.1 mg/dL (0.6-1.0); MAGNESIUM 1.8 mg/dL (1.8-2.4); PHOSPHOROUS 3.2 mg/dL (2.5-4.9); POTASSIUM SERUM 3.6 mmol/L (3.5-5.1)
[2020-01-27 06:44] LABS: BASOPHIL % 0 % (0-2); PLATELET COUNT 113 x10^3mcL (130-400); RED CELL DISTRIBUTION WIDTH 16.1 % (11.5-14.5)
[2020-01-27 07:48] VITALS: BP 106/61
--- NOTE | 2020-01-27 08:09 | NUR ---
RC'D PT RESTING IN BED WITH NO APPARENT S/S OF DISTRESS. PT A/A/O/X3, SPEECH CLEAR AND APPROPRIATE. PT REPORTS SLIGHT [place], 09/22. PT RESPONDS TO VERBAL TACTILE AND ABLE TO FOLLOW SIMPLE COMMANDS. RESP E/U. LUNGS DIM TO BASES. PT ON 2L O2 VIA NC, DENIES SOB. WEAK PALP PULSES TO BUE/BLE, NO EDEMA NOTED SKIN WARM TO TOUCH AND CONSISTENT WITH ETHNICITY. RAC PIV IN PLACE, PATENT AND INTACT. SB ON CM, HR 55. S1S2 AUSC. PT DENIES CP AT THIS TIME. PT CURRENTLY ON LEVOPHED 2MCG/MIN FOR BLOOD PRESSURE SUPPORT. ABDOMEN SOFT AND ROUND. ACTIVE BS. PT DENIES N/V. F/C WITH ORANGE URINE DRAINING TO GRAVITY, SECURED IN PLACE. NO VAGINAL DISCHARGE NOTED. BED IN LOW POSITION. CALL LIGHT IN REACH. WILL CONT TO MONITOR
--- NOTE | 2020-01-27 08:26 | NUR ---
PATIENT C/O NOT FEELING WELL WITH HEADACHE AND INABILITY TO BREATH. PATIENT ON NASAL CANNULA AT 2 LPM WITH SP02 99%. ASSESSED LUNG SOUNDS AND FOUND PATIENT TO BE DIMINISHED AT BILATERAL BASES. TELEPHONE DR CHAVIRA AND MADE AWARE.
--- NOTE | 2020-01-27 08:35 | NUR ---
DR CHAVIRA AT BEDSIDE TO ASSESS PATIENT. PATIENT C/O HEADACHE, OVERAL WEAKNESS AND SOB. DR CHAVIRA ASSESSED PATIENT. IVF DECREASED TO 50 ML/HR PER DR CHAVIRA VERBAL ORDER. CXR ORDERED STAT. WILL CONTINUE TO MONITOR.
--- NOTE | 2020-01-27 08:45 | NUR ---
XRAY PRESENT AT [facility]
--- NOTE | 2020-01-27 08:52 | NUR ---
MORNING MEDICATIONS GIVEN AT THIS TIME, PT TOLERATED WELL. PT C/O OF [place] 11/22, MEDICATED PER EMAR. WILL CONT TOMONIOT
[2020-01-27 11:50] VITALS: BP 106/52
--- NOTE | 2020-01-27 14:15 | NUR ---
LEVOPHED TITRATED OFF AT THIS TIME. VITAL SIGNS REMAIN STABLE. WILL CONT TO MONITOR
[2020-01-27 16:18] VITALS: BP 115/59
--- NOTE | 2020-01-27 19:23 | NUR ---
REPORT CALLED AND GIVEN TO ROSA ELENA BUSTAMANTE. UPDATED ON PTS CURRENT STATUS. QUESTIONS ANSWERED. PT TO TRANSFER TO ROOM 254B SHORTLY.
--- NOTE | 2020-01-27 20:05 | NUR ---
PT ARRIVED FROM ICU VIA WHEELCHAIR ACCOMPANIED BY ICU NURSE AND [employer] TECH. PT IS AWAKE, ALERT,ORIENTED X2. LUNG SOUNDS W/ WHEEZING ON THE RIGHT SIDE. NO SOB NOTED. PT PLACED ON O2 AT 2L VIA N/C. SHE C/O HEADACHE, CHEST PAIN AND FLANK PAIN 10/10. PT APPEARS ANXIOUS. SHE HAS NO C/O ABDL DISCOMFORT. W/ JORDAN CATH DRAINING BARBA COLORED URINE. W/ TLC TO RTIJ AND HL TO RTAC. CALL LIGHT W/IN REACH.
--- NOTE | 2020-01-28 02:46 | NUR ---
PT C/O PAIN POINTING TO HER PELVIC AREA AND SAYING " MY BLADDER HURTS". MEDICATED PT W/ NORCO 7.5/325 MG PO.
--- NOTE | 2020-01-28 05:31 | NUR ---
PT ASLEEP COMFORTABLY AT THIS TIME. NO EPISODE OF RESP. DISTRESS. SHE WAS MEDICATED FOR PAIN X1 W/ RELIEF. CENTRAL LINE TO RTIJ INTACT. HL TO RTAC INTACT. JORDAN CATH PATENT AND NOW DRAINING ORANGE COLORED URINE. ALL NEEDS ATTENDED TO.
[2020-01-28 06:04] VITALS: BP 123/60
--- NOTE | 2020-01-28 06:22 | NUR ---
PT C/O CHEST PAIN 02/22 AND REQUESTING FOR TYLENOL. PT MEDICATED W/ TYLENOL 650 MG PO.
--- NOTE | 2020-01-28 07:22 | NUR ---
PT NOW APPEARS TO BE SLEEPING COMFORTABLY. RESP. EVEN AND UNLABORED. ENDORSED TO AM NURSE.
--- NOTE | 2020-01-28 07:50 | NUR ---
RECEIVED PT LYING IN BED A/A. BREATHING EQUAL/UNLABORED ON 2L/NC. TELE 35, NSR. NO ACUTE PAIN/DISTRESS. JORDAN FLOWING TO GRAVITY WITH ORANGE URINE. RIJ SITE AND RAC IV SITE, WNL. BED IN LOW POSITION, CALL LIGHT IN REACH, SAFETY PRECAUTIONS IN PLACE. WILL CONTINUE TO MONTIOR
[2020-01-28 08:06] LABS: CALCIUM 7.7 mg/dL (8.5-10.1); CARBON DIOXIDE 21.6 mmol/L (21-32); CHLORIDE SERUM 108 mmol/L (98-107); CREATININE SERUM 0.9 mg/dL (0.6-1.0); GFR1 > 60 mL/min; GLUCOSE SERUM 161 mg/dL (74-106); MAGNESIUM 1.8 mg/dL (1.8-2.4); POTASSIUM SERUM 3.3 mmol/L (3.5-5.1); SODIUM SERUM 142 mmol/L (136-145)
[2020-01-28 08:38] LABS: BASOPHIL % 0.1 % (0-2)
[2020-01-28 08:44] LABS: PLATELET COUNT 110 x10^3mcL (130-400)
[2020-01-28 09:05] VITALS: BP 138/69
--- NOTE | 2020-01-28 12:47 | NUR ---
PT RESTING IN BED A/A. BREATHING EQUAL/UNLABORED ON 2L/NC. NO ACUTE PAIN/DISTRESS/CHANGES. JORDAN FLOWING TO GRAVITY. RIJ AND IV SITE, WNL. WILL CONTINUE TO MONITOR
[2020-01-28 12:48] VITALS: BP 126/60
--- NOTE | 2020-01-28 14:53 | NUR ---
BLOOD CULTURE RESULTS REPORTED TO DR. GUARDADO. NO NEW ORDERS GIVEN
--- NOTE | 2020-01-28 16:07 | NUR ---
1. Recommend swallow evaluation 2. Recommend feeding dental office assistant 3. Recommend ensure high protein BID to aid PO intake. It will provide 320kcal and 32g protein. Recommendation provided to Dr. Saul, and Dr. Saul acknowledged.
--- NOTE | 2020-01-28 16:07 | NUR ---
Initial Nutrition Assessment: 254B CLAUDIA, RICK 69F HR Nursing trigger: Appears underweight/malnourished, N/V/D > 3days, poor PO intake > 3days Dx: NSTEMI, UTI PMHx: CHF, gastric AVM, Anemia PSHx: angioplasty with stent, cholecystectomy Labs: (01/27) K 3.3L, CL 108H, BG 161H, BUN 23H, H/H 10.9/33L, (01/24) bilirubin 1.4H, AST 39H, ALk ph 912H, Chol 208H, LDL 101H Meds: Aspirin, Colace, florinef, Lipitor, Merrem, Pyridium, Solu-cortef PRN meds: Gardiner, Tylenol, Zofran Diet: Cardiac PO intake since admission: 20-40% x 4 meals with average PO intake of 27.5% Ht: 121.92cm/48in Wt: 46kg/101lbs BMI: 30.9 Bed scale: 57.2kg/125.7lbs IBW: 31kg/70lbs %IBW: 148% ABW: 35kg UBW: pt did not remember Age: 69 Food Allergies: egg per pt Edema: none noted Last BM: none noted, and pt not sure noted Skin: intact Maximino: 16 Per H and P (01/24), pt is a 69 y/o F who presented to ED with the kidney and bladder pain for the last 2 days. She states that it is burning sensation and radiates to her back, but didn't have any blood in the urine. She also mentioned that last 2 days she felt hot, so might had fever, she didn't check. She feels weak and like her heart was pounding, also SOB started yesterday. Pt was not answering questions appropriately and either she is confused or has a hearing problem. Pt is ambulatory, came from home. She states living with her son and . To my question to contact one of her family member she said no need as she knows everything about her meds. Pt was admitted with dx: sepsis, Type 2 [place], possible acute on chronic CHF, mild PCM, DVT RD Note (01/27) Pt was seen lying in bed with no s/s of distress during bedside visit. Per pt, her appetite was bad because she could not see what she was eating, and she might need feeding assistance. During visit, pt mentioned that she has hard time chewing/swallowing because she has no teeth. Pt showed RDN her teeth and mentioned that she was planning to go see her dentist on 01/29. Additionally, pt didn't remember her usual body weight and her height. Problem with: N/V/D/C: none per pt Problems with: Chewing: Yes, pt has no teeth; Swallowing: yes per pt Current appetite: poor per pt d/t not being able to see what she ate Recent wt change: pt did not remember per pt %wt change: n/a Height: pt did not remember Vitamin/Supplement use: none per pt Special diet at home: none per pt Physical activity: walking per pt. Pt stated that she liked to exercise her legs Nutrition education given (specify specific nutrition education and handout given): not given at this time Food-drug interactions? Education given? n/a Estimated Nutritional Needs Based on adjusted body weight (35kg) Energy: 0456-4599 kcal/day (30-35 kcal/kg for sepsis) Protein: 53-70 g/day (1.5-2 g/kg for sepsis) Fluid: 6382-9547 mL/day (1 mL/kcal) or per MD Nutrition Diagnosis: 1. Chewing and swallowing difficulty r/t pt lack of teeth and pathophysiological cause a/e/b pt reported not having teeth and coughing when swallowing. 2. Inadequate energy and protein intake r/t poor PO intake a/e/b pt PO intake of 27.5% meeting < 75% of estimated kcal and protein needs. Intervention 1. Recommend swallow evaluation 2. Recommend feeding research assistant member 3. Recommend ensure high protein BID to aid PO intake. It will provide 320kcal and 32g protein. Recommendation provided to Dr. Saul, and Dr. Saul acknowledged. Monitor/Evaluate Goal: PO intake at least 75% of estimated needs Monitor: PO intake, Labs, GI function, ONS intake, diet implementation F/U in 2-3 days as high risk 01/29-
[2020-01-28 17:45] VITALS: BP 97/52
--- NOTE | 2020-01-28 18:24 | NUR ---
PT LYING IN BED A/A. BREATHING EQUAL/UNLABORED ON 2L/NC. NO ACUTE CHANGES/PAIN/DISTRESS. RIJ SITE AND RAC IV SITES, WNL. JORDAN FLOWING TO GRAVITY WITH ORANGE URINE. CHG WIPES AND JORDAN CARE DONE. BED IN LOW POSITION, CALL LIGHT IN REACH, SAFETY PRECAUTIONS IN PLACE. WILL ENDORSE TO NIGHT NURSE
--- NOTE | 2020-01-28 20:00 | NUR ---
PATIENT AWAKE, ALERT, ORIENTED X3, FORGETFUL AT TIMES. RESPIRATION EVEN AND UNLABORED, ON O2 2L PER NASAL CANNULA. ONGOING 0.9% NS AT TKO ON THE R IJ TLC. SALINE LOCK TO R ANTECUBITAL AREA PATENT AND INTACT. C/O GENERALIZED PAIN, PS 8/10. MEDICATED ORDERED. LBM 15. JORDAN CATHETER TO GRAVITY DRAINING ORANGE COLORED URINE. GENERALIZED WEAKNESS. NEEDS ASSISTANCE WITH ADL'S. SKIN DRY AND INTACT. ON TELE #35. +E COLI AND ESBL IN URINE AND BLOOD. CONTACT PRECAUTION OBSERVED. WILL CONTINUE TO MONITOR.
[2020-01-28 20:55] VITALS: BP 115/77
--- NOTE | 2020-01-28 21:14 | NUR ---
PATIENT MEDICATED WITH NORCO 7.5/325 MG PO FOR GENERALIZED PAIN, 02/22. WILL REASSESS PATIENT.
[2020-01-29 05:35] VITALS: BP 136/70
--- NOTE | 2020-01-29 06:44 | NUR ---
PATIENT RESTING IN BED. RESPIRATION EVEN AND UNLABORED, ON O2 2L PER NASAL CANNULA. R IJ TLC AND R ANTECUBITAL AREA PATENT AND INTACT. DENIES PAIN AT THIS TIME. JORDAN CATHETER PATENT AND INTACT. CONTACT PRECAUTION OBSERVED. ASSISTED WITH NEEDS. SAFETY OBSERVED. PLACED BED IN THE LOWEST POSITION. PLACED CALL LIGHT WITHIN REACH AT ALL TIMES.
--- NOTE | 2020-01-29 07:30 | NUR ---
RECEIVED PT LYING IN BED A/A. BREATHING EQUAL/UNLABORED ON 2L/NC. NO ACUTE PAIN/DISTRESS. RIJ AND RAC IV SITES, WNL. JORDAN FLOWING TO GRAVITY WITH RED/ORANGED URINE. BED IN LOW POSITION, CALL LIGHT IN REACH, SAFETY PRECAUTIONS IN PLACE. WILL CONTINUE TO MONITOR
[2020-01-29 08:00] VITALS: BP 147/67
[2020-01-29 08:15] LABS: CARBON DIOXIDE 22.4 mmol/L (21-32); CHLORIDE SERUM 107 mmol/L (98-107); CREATININE SERUM 0.8 mg/dL (0.6-1.0); GFR1 > 60 mL/min; GLUCOSE SERUM 232 mg/dL (74-106); MAGNESIUM 1.9 mg/dL (1.8-2.4); POTASSIUM SERUM 3.9 mmol/L (3.5-5.1); SODIUM SERUM 140 mmol/L (136-145)
[2020-01-29 08:40] LABS: BASOPHIL % 0.2 % (0-2)
[2020-01-29 08:43] LABS: PLATELET COUNT 118 x10^3mcL (130-400); RED CELL DISTRIBUTION WIDTH 15.4 % (11.5-14.5)
[2020-01-29 11:45] VITALS: BP 140/74
[2020-01-29] MEDS ORDERED: MEROPENEM1 GM IV (13:44)
[2020-01-29] MEDS ORDERED: FLOMAX0.4 MG PO (13:47)
--- NOTE | 2020-01-29 15:50 | NUR ---
NURSE FROM PICC RN CALLED AND STATED "WE ARE SHORT NURSES SO IT MIGHT HAVE TO BE DONE TOMORROW MORNING, I WILL CALL YOU BACK WITH A TIME SOON."
--- NOTE | 2020-01-29 16:08 | NUR ---
SHER FROM PICC RN WILL BE COMING TOMORROW TO INSERT PICC. NO ETA AT THIS TIME
[2020-01-29 16:44] VITALS: BP 118/70
--- NOTE | 2020-01-29 17:40 | NUR ---
JORDAN CARE DONE
--- NOTE | 2020-01-29 18:16 | NUR ---
PT LYING IN BED A/A. BREATHING EQUAL/UNLABORED ON 2L/NC. NO ACUTE CHANGES/PAIN/DISTRESS. RIJ SITE, WNL. JORDAN FLOWING TO GRAVITY WITH RED/ORANGE URINE. BED IN LOW POSITION, CALL LIGHT IN REACH, SAFETY PRECAUTIONS IN PLACE. WILL ENDORSE TO NIGHT NURSE
--- NOTE | 2020-01-29 19:20 | NUR ---
RECEIVED PATIENT FROM PREVIOUS SHIFT NURSE. PATIENT IN NO ACUTE DISTRESS. AWAKE, ALERT, ORIENTED X3. TELE #[address], HR 58. EVEN AND UNLABORED BREATHING NOTED, 2L NC. DENIES ANY SOB. DNIES ANY PAIN AT THIS MOMENT. NO C/O CHEST PAIN OR CHEST PRESSURE. RIJ WNL. DRESSING CDI. BED IN LOWEST POSITION. CALL LIGHT WITHIN REACH.
[2020-01-29 20:02] VITALS: BP 123/81
[2020-01-30 05:18] VITALS: BP 145/67
--- NOTE | 2020-01-30 06:21 | NUR ---
PATIENT GIVEN NORCO FOR PAIN AT 0500 AM. PATIENT NOW SLEEPING COMFORTABLY. NO C/O PAIN AT THIS TIME. EVEN AND UNLABORED BREATHING NOTED. MEDICATION INFUSING WELL. TELE #[address] 2L NC IN PLACE, NO S/S OF SOB. JORDAN DRAINING TO GRAVITY, WNL. RIJ IN PLACE, WNL. CDI. TOLERATED MEDICATIONS WELL. BED IN LOWEST POSITION. CALL LIGHT WITHIN REACH. WILL ENDORSE CARE TO ONCOMING SHIFT. WILL CONTINUE TO MONITOR.
--- NOTE | 2020-01-30 07:20 | NUR ---
RECEIVED PATIENT FROM PM NURSE, ALERT AND ORIENTED X 3, WITH PERIODS OF CONFUSION, LUNG SOUNDS CLEAR, ON RA, UNABLE TO AMBULATE BUT CAN MOVE EXTREMETIES INDEPENDENTLY, CENTRAL LINE IN RIJ DRESSING DIT , ON TELEMETRY, CURRENTLY 87 NSR, DENIES CHEST PAIN, CONINENT OF BOWEL,JORDAN CATHETER DRAINING YELLOW URINE BOWEL SOUNDS ACTIVE, ABDOMEN NON DISTENDED, LAST BM 01/28, SKIN INTACT, PEDAL PULSES EQUAL AND MODERATE, NO EDEMA NOTED, NO C/O PAIN AT THIS TIME, PATIENT CALM AND COOPERATIVE
[2020-01-30 07:45] VITALS: BP 105/70
[2020-01-30 12:30] VITALS: BP 115/67
--- NOTE | 2020-01-30 12:54 | NUR ---
PATIENT REFUSING PO COLACE PER ORDER IN EMAR, REPORTS LARGE LOOSE BM YESTERDAY
--- NOTE | 2020-01-30 15:00 | NUR ---
PATIENT HAD PICC LINE INSERTED IN RIGHT UPPER ARM BY PICC LINE NURSE, TOLERATED WELL WITH NO C/O PAIN OR DISCOMFORT
--- NOTE | 2020-01-30 17:47 | NUR ---
PT WAS SEEN FOR DYSPHAGIA. PT WAS ABLE TO SAFELY SWALLOW PUREE DIET WITH THIN LIQUID. DIFFICULTY WITH MASTICATION SKILLS FOR MS DIET. RECOMMENDATION PUREE DIET WITH THIN LIQUID.
--- NOTE | 2020-01-30 18:16 | NUR ---
OBTAINED ORDERS TO DC CNTRAL LINE AND OK TO USE PICC LINE FROM
--- NOTE | 2020-01-30 18:21 | NUR ---
CENTRAL LINE D/C'D, PATIENTR TOLERATED WELL, PRESSURE APPLIED SITE COVERED WITH 4X4 GAUZE AND SECURED WITH TRANSPORE TAPE
--- NOTE | 2020-01-30 18:24 | NUR ---
PATIENT RESTING COMFORTABLY IN BED, NO C/O PAIN OR DISCOMFORT AT THIS TIME, WILL ENDORSE CARE TO PM NURSE
[2020-01-30 19:04] VITALS: BP 108/70
--- NOTE | 2020-01-30 20:00 | NUR ---
PATIENT ALERT AND ORIENTED X 2-3. 02 VIA N/C, ACYANOTIC LUNGS CLEAR BILATERALLY. MAXIMAL CARE RENDERED. SOLUMEDROL/ABT CONTINUE. PICC LINE INTACT. VTE HEPARIN. NO UNTOWARD BLEEDING NOTED.
[2020-01-30 20:35] VITALS: BP 148/73
--- NOTE | 2020-01-31 05:08 | NUR ---
PATIENT SLEEPING DURING ROUNDING. DENIES ANY PAIN. REPOSITIONED FOR COMFORT. PICC LINE DRESSING TO CHERYL CHANGE BY RN. NO SIGNS OF INFILTRATION NOTED. DENIES ANY PAIN TO SITE. VTE HEPARIN. NO UNTOWARD BLEEDING NOTED. CONTINUE CONTACT PRECAUTIONS ESBL URINE. PLAN TO SNIF IN PROGRESS. NO ACUTE DISTRESS NOTED.
[2020-01-31 05:28] VITALS: BP 143/70
--- NOTE | 2020-01-31 07:30 | NUR ---
RECEIVED PATIENT FROM PM NURSE, ALERT AND ORIENTED X 3, WITH PERIODS OF CONFUSION, LUNG SOUNDS CLEAR, ON 2LPM O2 VIA NC, UNABLE TO AMBULATE BUT CAN MOVE EXTREMETIES INDEPENDENTLY, DOUBLE LUMEN PICC IN CHERYL DRESSING DIT , ON TELEMETRY, CURRENTLY 28 NSR, DENIES CHEST PAIN, CONINENT OF BOWEL,JORDAN CATHETER DRAINING YELLOW URINE BOWEL SOUNDS ACTIVE, ABDOMEN NON DISTENDED, LAST BM 01/29, SKIN INTACT, PEDAL PULSES EQUAL AND MODERATE, NO EDEMA NOTED, NO C/O PAIN AT THIS TIME, PATIENT CALM AND COOPERATIVE
[2020-01-31 08:36] VITALS: BP 143/66
--- NOTE | 2020-01-31 09:50 | NUR ---
PATIENT COMPLAIN OF 4/10 PAIN IN LOWER BACK, REPOSITIONED PATIENT AND ADMINISTERED PRN TYLENOL PER EMAR, WILL CONTINUE TO MONITOR PATIENTS PAIN LEVEL
--- NOTE | 2020-01-31 10:50 | NUR ---
PATIENT NOW REPORTS 0/10 PAIN, NO FURTHER INTERVENTIONS NEEDED AT THIS TIME
[2020-01-31 12:10] VITALS: BP 120/61
--- NOTE | 2020-01-31 15:17 | NUR ---
1) Continue ensure high protein BID to aid PO intake. It will provide 320kcal and 32g protein. 2) Continue cardiac diet, recommend puree texture and thin liquids d/t COMMUNITY CENTER COORDINATOR recommendation 3) Recommend texture and consistency per COMMUNITY CENTER COORDINATOR 4) Recommend supervised feedings
--- NOTE | 2020-01-31 15:17 | NUR ---
Follow up Nutrition Assessment: 254B TAYLOR, RICK 69F HR Dx: NSTEMI, UTI PMHx: CHF, gastric AVM, Anemia PSHx: angioplasty with stent, cholecystectomy Labs: BG 232H, BUN 25H, Hgb: 11.6L, AST 39H Meds: Aspirin, Colace, Flomax, florinef, Lipitor, Merrem, Pyridium, Solu-cortef PRN meds: Magazine, Tylenol, Zofran Diet: Cardiac PO intake since admission: 60-85% Wts: (01/27) - 57.2kg/125.7lbs Edema: none noted Last BM: 01/30/2020 Skin: no problems with skin noted Maximino: 15 RD note (01/31/20): Pt was admitted with dx: sepsis, Type 2 [place], possible acute on chronic CHF, mild PCM, DVT, s/p swallow evaluation on 01/30/2020- FLOOR COVERER APPRENTICE recommended puree texture with thin liquids for 1 week with supervised feedings, pt to be discharged to SNF for further care, awaiting placement per nursing, discharge held d/t PICC line not complete Estimated Nutritional Needs Based on adjusted body weight (35kg) Energy: 9493-3974 kcal/day (30-35 kcal/kg for sepsis) Protein: 53-70 g/day (1.5-2 g/kg for sepsis) Fluid: 7571-3437 mL/day (1 mL/kcal) or per MD Nutrition Diagnosis: 1. Chewing and swallowing difficulty r/t pt lack of teeth and pathophysiological cause a/e/b pt reported not having teeth and coughing when swallowing, FLOOR COVERER APPRENTICE recommended puree diet with thin liquids Intervention 1) Continue ensure high protein BID to aid PO intake. It will provide 320kcal and 32g protein. 2) Continue cardiac diet, recommend puree texture and thin liquids d/t FLOOR COVERER APPRENTICE recommendation 3) Recommend texture and consistency per FLOOR COVERER APPRENTICE 4) Recommend supervised feedings Monitor/Evaluate Goal: PO intake at least 75% of estimated needs Monitor: PO intake, Labs, GI function, ONS intake, diet implementation F/U in 2-3 days as high risk 02/01-
[2020-01-31 17:02] VITALS: BP 145/67
--- NOTE | 2020-01-31 18:52 | NUR ---
PATIENT RESTING COMFORTABLY, IN BED NO C/O PAIN OR DISCOMFORT AT THIS TIME, WILL ENDORSE CARE TO PM NURSE
[2020-01-31 21:00] VITALS: BP 124/61
--- NOTE | 2020-02-01 04:00 | NUR ---
PATIENT SLEEPING DURING ROUNDING, EASILY AROUSED. RESPIRATIONS EVEN AND NONLABORED. NO ACUTE DISTRESS NOTED.
[2020-02-01 05:43] VITALS: BP 144/60
[2020-02-01 07:15] LABS: PLATELET COUNT 158 x10^3mcL (130-400)
[2020-02-01 07:22] LABS: BASOPHIL % 0 % (0-2); RED CELL DISTRIBUTION WIDTH 14.8 % (11.5-14.5)
--- NOTE | 2020-02-01 07:45 | NUR ---
RECEIVED PATIENT FROM PM NURSE, ALERT AND ORIENTED X 3, WITH PERIODS OF CONFUSION, LUNG SOUNDS CLEAR, ON 2LPM O2 VIA NC, UNABLE TO AMBULATE BUT CAN MOVE EXTREMETIES INDEPENDENTLY, DOUBLE LUMEN PICC IN CHERYL DRESSING DIT , ON TELEMETRY, CURRENTLY 78 NSR, DENIES CHEST PAIN, CONINENT OF BOWEL,JORDAN CATHETER DRAINING YELLOW URINE BOWEL SOUNDS ACTIVE, ABDOMEN NON DISTENDED, LAST BM 01/29, SKIN INTACT, PEDAL PULSES EQUAL AND MODERATE, NO EDEMA NOTED, NO C/O PAIN AT THIS TIME, PATIENT CALM AND COOPERATIVE
[2020-02-01 08:00] VITALS: BP 133/67
[2020-02-01 08:42] LABS: CALCIUM 7.6 mg/dL (8.5-10.1); CARBON DIOXIDE 27.7 mmol/L (21-32); CHLORIDE SERUM 107 mmol/L (98-107); CREATININE SERUM 0.8 mg/dL (0.6-1.0); GFR1 > 60 mL/min; GLUCOSE SERUM 197 mg/dL (74-106); MAGNESIUM 1.9 mg/dL (1.8-2.4); PHOSPHOROUS 2.4 mg/dL (2.5-4.9); POTASSIUM SERUM 3.4 mmol/L (3.5-5.1); SODIUM SERUM 144 mmol/L (136-145)
--- NOTE | 2020-02-01 09:00 | NUR ---
PATIENT REFUSED COLACE AT THIS TIME
[2020-02-01 13:38] VITALS: BP 136/65
[2020-02-01 17:00] VITALS: BP 113/59
--- NOTE | 2020-02-01 17:35 | NUR ---
PATIENT C/O 5/10 PAIN IN ABDOMEN AND BACK, PRN TORADOL ADMINISTERED PER EMAR, WILL CONTINUE TO MONITOR
--- NOTE | 2020-02-01 19:04 | NUR ---
PATIENT RESTING COMFORTABLY, NO S/SX OF DISTRESS OR DISCOMFORT AT THIS TIME, WILL ENDORSE CARE TO PM NURSE
--- NOTE | 2020-02-01 19:50 | NUR ---
PATIENT RESTING IN BED, A/O X4, VERBALLY RESPONSIVE, DENIES DIZZINESS AND HEADACHE. BREATHING E/U ON 2L NC, SPO2 99%, DENIES SOB. TELE #35, HR 69, DENIES CHEST PAIN. ABD SOFT AND ROUND. NO EDEMA NOTED. JORDAN CATHETER IN PLACE, 300 ML YELLOW URINE IN COLLECTION BAG, NO DEPENDENT LOOPS. PICC LINE @ RUE, TWO LUMENS, FLUSHED AND INFUSING NS @ TKO. CALL LIGHT WITHIN REACH, BED IN LOWEST POSITION. WILL CONTINUE TO MONITOR. FT AND ROUND
--- NOTE | 2020-02-01 20:24 | NUR ---
PATIENT'S SISTER RAIN CALLED FOR STATUS ON PATIENT, GAVE GENERAL STATUS, INFORMING PATIENT THAT PATIENT , STATED THAT SHE HAS NOT BEEN INFORMED OF COVID TEST RESULTS, INFORMED HER PATIENT HAS RECEIVED NEGATIVE COVID TEST RESULTS. STATED THAT SHE WILL BE DC'ED TO SNF PER DAY NURSE REPORT, PATIENT'S SISTER REQUESTED TO SPEAK WITH PHYSICIAN. RESIDENT PHYSICIAN MADE AWARE, HE STATED THAT HE WILL FIRST REVIEW PATIENT'S CHART BEFORE CALLING PATIENT'S SISTER.
[2020-02-01 20:47] VITALS: BP 128/63
--- NOTE | 2020-02-01 22:00 | NUR ---
PATIENT C/O OF 10/10 POUNDING CHEST PAIN, VS ON 2L NC, BREATHING E/U ON ROOM AIR, SPO02 100%, BP 128/63, RR 19, PULSE 69, TEMP 98.1. TORADOL PRN NOT DUE. CALLED PHYSICIAN, DR. DAVILA MADE AWARE, STATED THAT HE WILL PLACE ORDER FOR STAT EKG. WILL CONTINUE TO MONITOR PATIENT.
--- NOTE | 2020-02-01 22:15 | NUR ---
DR. DAVILA SAW PATIENT, EXPLAINED PURPOSE OF STAT EKG AND TROPONIN I LAB AND LIDOCAINE ORDER. PATIENT VERBALIZED UNDERSTANDING, WILL FOLLOW-UP WITH DR. DAVILA REGARDING RESULTS OF PATIENT'S TESTS.
--- NOTE | 2020-02-01 22:30 | NUR ---
LAB @ BEDSIDE FOR STAT TROPONIN I, I HELPED MONSE BLOOD FROM PICC LINE. EKG ARRIVED @ BEDSIDE FOR STAT EKG.
--- NOTE | 2020-02-01 22:35 | NUR ---
UNABLE TO LOCATE LIDOCAINE PATCH. PATIENT'S BP 157/75, HR 73. DR. CARL @ NURSING STATION, MADE AWARE OF PATIENT'S CHEST PAIN 10/ AND UNAVAILABIILTY OF LIDOCAINE PATCH. STATED HE WILL DC LIDOCAINE PATCH, PLACE ORDER FOR TORADOL ONE TIME AND START METROPOLOL (ORDERED BY DR. SERVIN) EARLY IT WAS ORIGINALLY SCHEDULED FOR [facility] AM. WILL CONTINUE TO MONITOR PATIENT.
--- NOTE | 2020-02-01 23:04 | NUR ---
PATIENT STATED THAT THEY ARE FEELING BETTER AND CHEST PAIN IS GOING DOWN, WHEN ASKED TO RATE PAIN, SHE WAS UNABLE TO VERBALIZE A NUMBER BUT STATED THAT THE PAIN IS GOING DOWN. GAVE LOPRESSOR ONE TIME AND TORADOL 15MG PRN PER PHYSICIAN ORDER. WILL CONTINUE TO MONITOR.
--- NOTE | 2020-02-01 23:08 | NUR ---
DR. CARL MADE AWARE OF PATIENT'S STATEMENT OF FEELING BETTER, CALM AND RESTING IN BED, AND THAT LOPRESSOR AND TORADOL HAVE BEEN GIVE. STATED TO CONTINUE TO MONITOR PATIENT @ THIS TIME.
[2020-02-02 00:25] VITALS: BP 139/65
--- NOTE | 2020-02-02 00:25 | NUR ---
PATIENT RESTING IN BED, BREATHING E/U, ON 3L NC. PATIENTS STATES THAT SHE FEELS NO CHEST PAIN @ THIS TIME, AND THAT SHE "FEELS BETTER". VS TAKEN TEMP 98.7, BP 139/65, MAP 114, SP02 100%, RR 16. EKG SHOWED SINUS RHYTHM AND WAS SEEN BY DR. CARL, AND STAT TROP 0.027. WILL NOTIFY PHYSICIAN.
--- NOTE | 2020-02-02 01:07 | NUR ---
PAGED DR. DAVILA TO UPDATE ON PATIENT'S CURRENT CONDITION AND NO COMPLIANT OF CHEST PAIN. WAITING TO HEAR BACK FROM DR. DAVILA.
--- NOTE | 2020-02-02 03:49 | NUR ---
DR. CARL MADE AWARE OF PATIENT'S CURRENT CONDITION OF "FEELING BETTER", AND NO COMPLIANT OF CHEST PAIN @ THIS TIME, VS T 98.7, HR 60, BP 139/65, SPO2 100% ON 2L NC, RR 16, STAT TROPONIN 0.027. DR. CARL HAD ALREADY REVIEWED STAT EKG. NO NEW ORDERS @ THIS TIME. WILL CONTINUE TO MONITOR PATIENT
--- NOTE | 2020-02-02 05:50 | NUR ---
PATIENT RESTING IN BED, BREATHING E/U ON 2L NC, SPO2 98%, DENIES SOB. TELE #35, NSR, HR 63, DENIES CHEST PAIN @ THIS TIME. ALL NEEDS MET, CALL LIGHT WITHIN REACH, SAFETY PRECAUTIONS MAINTAINED THROUGHOUT SHIFT, WILL ENDORSE CARE TO DAY NURSE.
[2020-02-02 06:04] VITALS: BP 156/72
[2020-02-02 07:19] LABS: PLATELET COUNT 167 x10^3mcL (130-400)
[2020-02-02 07:25] LABS: CALCIUM 7.6 mg/dL (8.5-10.1); CARBON DIOXIDE 28.6 mmol/L (21-32); CHLORIDE SERUM 105 mmol/L (98-107); CREATININE SERUM 0.7 mg/dL (0.6-1.0); GFR1 > 60 mL/min; GLUCOSE SERUM 288 mg/dL (74-106); MAGNESIUM 1.9 mg/dL (1.8-2.4); PHOSPHOROUS 2.3 mg/dL (2.5-4.9); SODIUM SERUM 142 mmol/L (136-145)
--- NOTE | 2020-02-02 07:30 | NUR ---
RECEIVED PT FROM WALL AND FLOOR TILER RN. Meera/LUCINA. TELE#35. PT DENIES ANY CHEST PAIN/PRESSURE AT THIS TIME, PT REPORTS CP HAS IMPROVED SINCE LAST NIGHT. RESPIRATIONS EQUAL AND UNLABORED ON 2L NC, DENIES ANY SOB. PT DENIES ANY N/V. PT DOES HAVE ABDOMINAL TENDERNESS TO LLQ UPON PALPATION. CHERYL DOUBLE LUMEN PICC IN PLACE, WITH GOOD BLOOD RETURN, FLUSHED WELL, NO REDNESS OR SWELLING NOTED. JORDAN CATHETER IN PLACE, SECURED TO THIGH DRAINING LIGHT YELLOW URINE. WILL CONTINUE TO MONITOR. CALL LIGHT IN REACH. BED IN LOWEST POSITION.
[2020-02-02 07:49] LABS: BASOPHIL % 0 % (0-2); RED CELL DISTRIBUTION WIDTH 14.9 % (11.5-14.5)
[2020-02-02 09:44] VITALS: BP 143/67
[2020-02-02] MEDS ORDERED: TOP50 PO (12:30)
[2020-02-02] MEDS ORDERED: ZES5 PO (12:30)
[2020-02-02] MEDS ORDERED: ECO81 PO (12:31)
[2020-02-02 13:31] VITALS: BP 137/60
[2020-02-02 13:36] VITALS: BP 137/60
--- NOTE | 2020-02-02 15:02 | NUR ---
PT SITTING UP AT BEDSIDE. PT C/O [place], MEDICATED PER EMAR. CHERYL PICC LINE DRESSING CHANGE DONE, WITH STERILE TECHNIQUE, PT TOLERATED WELL. PT AWARE OF PLAN TO TRANSFER TO [facility], SIGNED CONSENTS AND TRANSFER CONSENT. EMPTIED 1000ML OF YELLOW URINE FROM JORDAN. WILL CONTINUE TO MONITOR. CALL LIGHT IN REACH. BED IN LOWEST POSITION.
--- NOTE | 2020-02-02 15:16 | NUR ---
CALLED [facility] REPORT GIVEN TO DIANNA CHAVIRA, ALL QUESTIONS AND CONCERNS ADDRESSED, CALL BACK NUMBER PROVIDED.
--- NOTE | 2020-02-02 16:12 | NUR ---
[facility] AT BEDSIDE, REPORT GIVEN, ALL QUESTIONS AND CONCERNS ADDRESSED, NO PROBLEMS ENCOUNTERED, TELE RETURNED TO BUS MATRON.
== END 2020-02-02 16:24 | DRG 871 ==
LOC: ED 11:53 → IC 15:44 → DU 15:44 → IC 01-26 02:04 → DU 01-27 20:05
PROVIDERS: Specialist; ADMIT Family Medicine; ATTEND Family Medicine
PROC: 02HV33Z Insertion of Infusion Device into Superior Vena Cava, Percutaneous Approach (ICD-10-PCS; principal; 2020-01-26)
DX: A41.9 Sepsis, unspecified organism (principal); I21.A1 Myocardial infarction type 2; R65.21 Severe sepsis with septic shock; N39.0 Urinary tract infection, site not specified; E44.1 Mild protein-calorie malnutrition; E11.9 Type 2 diabetes mellitus without complications; I50.9 Heart failure, unspecified; D64.9 Anemia, unspecified; E78.00 Pure hypercholesterolemia, unspecified; I25.5 Ischemic cardiomyopathy; Z20.828 Contact with and (suspected) exposure to other viral communicable diseases; I25.10 Atherosclerotic heart disease of native coronary artery without angina pectoris; A49.8 Other bacterial infections of unspecified site; E78.5 Hyperlipidemia, unspecified; Z79.82 Long term (current) use of aspirin; Z79.899 Other long term (current) drug therapy; Z90.49 Acquired absence of other specified parts of digestive tract; Q27.33 Arteriovenous malformation of digestive system vessel; Z68.30 Body mass index [BMI] 30.0-30.9, adult
CPT/HCPCS: 36556; 36600; 83880; 85378; 87804; 92526-GN; 92610-GN; 97110-GP; 97116-GP; 97530-GP; G0378; J0696; J1642; J1644; J1720; J1885; J1940; J2185; J2543; J3370; J3480; J3490; J7030; J7040; J7050; Q0092; Q0162; U0003-CS

== ENCOUNTER 2020-04-05 14:33 | Emergency (ER) | payer OTHER, MEDICAID ==
[~2020-04-05] VITALS: Ht 152.4 cm; Wt 49.0 kg
[~2020-04-05 14:33] MED LIST changes: +FLOMAX0.4 MG PO; +MEROPENEM1 GM IV; +MERREM IV1 GM INJ; +TOP50 PO
[2020-04-05 14:47] VITALS: Ht 152.4 cm; Wt 49.0 kg
[2020-04-05 15:47] LABS: BASOPHIL % 2.6 % (0-2); PLATELET COUNT 212 x10^3mcL (130-400); RED CELL DISTRIBUTION WIDTH 17.8 % (11.5-14.5)
[2020-04-05 16:13] LABS: CALCIUM 8.6 mg/dL (8.5-10.1); CHLORIDE SERUM 103 mmol/L (98-107); CREATININE SERUM 0.5 mg/dL (0.6-1.0); GFR1 > 60 mL/min; GLUCOSE SERUM 118 mg/dL (74-106); POTASSIUM SERUM 4.1 mmol/L (3.5-5.1); SODIUM SERUM 135 mmol/L (136-145)
[2020-04-05 16:18] LABS: ALT/SGPT 211 U/L (14-59); AST/SGOT 189 U/L (15-37); LIPASE 150 IU/L (73-393)
[2020-04-05 16:20] LABS: ALBUMIN 3.2 g/dL (3.4-5.0)
[2020-04-05 16:30] LABS: ALKALINE PHOSPHATASE 1725 U/L (46-116)
[2020-04-05 17:00] VITALS: BP 128/68
== END 2020-04-05 17:00 | disposition left against medical advice (07) ==
LOC: ED 14:33
PROVIDERS: Emergency Medicine
DX: K92.2 Gastrointestinal hemorrhage, unspecified (principal); E11.9 Type 2 diabetes mellitus without complications; I50.9 Heart failure, unspecified; Z86.2 Personal history of diseases of the blood and blood-forming organs and certain disorders involving the immune mechanism; Z90.49 Acquired absence of other specified parts of digestive tract

== ENCOUNTER 2020-04-14 13:22 | Emergency (ER) | payer OTHER, MEDICAID ==
[~2020-04-14] VITALS: Ht 147.3 cm; Wt 46.3 kg
[2020-04-14 13:35] VITALS: Ht 147.3 cm; Wt 46.3 kg
[2020-04-14 14:30] VITALS: BP 146/79
== END 2020-04-14 14:31 | disposition home or self-care (01) ==
LOC: ED 13:22
DX: Z45.2 Encounter for adjustment and management of vascular access device (principal)